=== PATIENT | male | born 1945 | race Caucasian/White ===

== ENCOUNTER → 2016-07-26 | Outpatient (CLI) | payer OTHER ==
[~2016-07-26] MED LIST: ASPI81TA28 PO; CARV25TA2 PO; CRDCD180 PO; ELQ25 PO; FURO-85 PO; LNX125 PO; LOSA100T65 PO; MCRK20 PO; PRAV40TA2 PO
[2016-07-26 11:31] LABS: BLOOD UREA NITROGEN 22 mg/dl (7-18); BUN/CREATININE RATIO 16.8 (10-20); CALCIUM 9.7 mg/dl (8.5-10.1); CARBON DIOXIDE 28 mmol/L (21-32); CHLORIDE 107 mmol/L (98-107); GLUCOSE 132 mg/dl (70-99); POTASSIUM 4.4 mmol/L (3.5-5.1); SODIUM 141 mmol/L (136-145)
[2016-07-26 11:32] LABS: PHOSPHORUS 3.2 mg/dl (2.5-4.9)
[2016-07-26 12:16] LABS: URINE APPEARANCE TURBID (CLEAR); URINE BILIRUBIN NEG (NEG); URINE COLOR DK YELLOW; URINE NITRITE NEG (NEG); URINE PH 5.5 (4.5-7.5); URINE SPECIFIC GRAVITY 1.024 (1.000-1.030); UROBILINOGEN NEG (NEG)
[2016-07-26 12:17] LABS: MANUAL MICROSCOPIC REQUIRED? NO; REVIEW REQ? NO
== END | disposition home or self-care (01) ==
LOC: C.LAB1850 09:28
PROVIDERS: ATTEND Internal Medicine Nephrology
DX: N18.2 Chronic kidney disease, stage 2 (mild) (principal)

== ENCOUNTER → 2017-01-13 | Outpatient (CLI) | payer OTHER ==
[~2017-01-13] MED LIST changes: -CRDCD180 PO; -ELQ25 PO; -LNX125 PO; -MCRK20 PO
[2017-01-13 12:29] LABS: BASO % 0.4 %; BASO ABS # 0.03 K/uL (0-0.2); COMPLETE YES; EOS % 2.9 %; HEMATOCRIT 45.6 % (42-52); IG% 0.2 %; LYMPH % 33.9 %; LYMPH ABS # 2.77 K/uL (1.2-3.4); MEAN CELL VOLUME 91.2 fL (80-100); MEAN CORPUSCULAR HGB CONC 35.1 g/dl (32-36); MEAN PLATELET VOLUME 10.6 fL (7.4-10.4); MONO % 8.6 %; PLATELET COUNT 235 K/uL (130-400); WHITE BLOOD COUNT 8.17 K/uL (4.8-10.8)
[2017-01-13 12:56] LABS: BLOOD UREA NITROGEN 21 mg/dl (7-18); BUN/CREATININE RATIO 19.1 (10-20); CALCIUM 9.1 mg/dl (8.5-10.1); CARBON DIOXIDE 26 mmol/L (21-32); CHLORIDE 108 mmol/L (98-107); GLUCOSE 95 mg/dl (70-99); POTASSIUM 4.2 mmol/L (3.5-5.1); SODIUM 139 mmol/L (136-145)
[2017-01-13 13:06] LABS: PHOSPHORUS 2.9 mg/dl (2.5-4.9)
[2017-01-13 13:35] LABS: ESTIMATED AVERAGE GLUCOSE 120 mg/dl; HA1C FLAG Normal (Normal)
== END | disposition home or self-care (01) ==
LOC: C.LAB1850 11:37
PROVIDERS: ATTEND Internal Medicine Nephrology
DX: R73.9 Hyperglycemia, unspecified (principal); D64.9 Anemia, unspecified; N18.3 Chronic kidney disease, stage 3 (moderate)

== ENCOUNTER 2017-02-27 06:42 | Inpatient (IN) | payer OTHER ==
[2017-02-27] VITALS (10 sets, daily range): BP systolic 116–144; BP diastolic 78–94; PULSE 82–113; TEMP 36.7–37.2; O2SAT 92–96; Ht 190.5 cm; Wt 107.1 kg
[~2017-02-27] VITALS: Ht 190.5 cm; Wt 107.1 kg
--- NOTE | 2017-02-27 07:08 | EMERGENCY ROOM VISIT NOTE ---
History Report prepared by nAdrey: Acosta Mccann Under the Supervision of: Dr. Pablo Boyd M.D. First contact with patient: 06:51 Chief Complaint: SHORTNESS OF BREATH Stated Complaint: COUGHING,SHORT OF BREATH,HX HEART ISSUES History of Present Illness The patient is a 71 year old male who presents to the Emergency Room with complaints of a worsening illness that started a few days ago. He says that he thought he was just having a cold, with a cough, but his congestion and cough have not been going away, and last night, he states that he could not sleep due to hardly being able to breathe. The patient notes that he is wheezing a lot, and his shortness of breath is mostly when laying down. He says that he feels better when sitting up. The patient states that he is not using inhalers. Per the patient's , the patient has heart disease, and had a quadruple bypass 5 years ago. The patient has a defibrillator, but it has never activated. He had atrial fibrillation once but has never had it since. He is on Aspirin. Source of History: patient, spouse/significant other Onset: A few days ago Position: other (global - illness) Quality: other (thought was just a cold but is worsening) Timing: worsening Modifying Factors (Worsening): other (laying down) Modifying Factors (Relieving): other (sitting up) Associated Symptoms: + cough, + SOB Note: Associated symptoms: Congestion, wheezing. Review of Systems See HPI for pertinent positives & negatives. A total of 10 systems reviewed and were otherwise negative. Past Medical & Surgical Medical Problems: (1) Atrial fibrillation with RVR (2) Heart disease (3) HTN (hypertension) (4) Kidney disease Surgical Problems: (1) H/O heart bypass surgery Family History FH: HTN (hypertension) FH: cancer FH: diabetes mellitus Lung disease Social History Smoking Status: Never Smoker Smokeless Tobacco Use: No Marital Status: Housing Status: lives with family Occupation Status: retired Current/Historical Medications Scheduled Aspirin (Aspirin Ec), 81 MG PO QAM Carvedilol (Coreg), 25 MG PO BID Furosemide (Lasix), 20 MG PO Q2D Losartan Potassium (Cozaar), 100 MG PO QAM Pravastatin Sodium (Pravastatin Sodium), 1 TAB PO HS Allergies Coded Allergies: No Known Allergies (Unverified , 08/27/15) Physical Exam Vital Signs Date Time Temp Pulse Resp B/P (MAP) Pulse Ox O2 Delivery O2 Flow Rate FiO2 02/27/17 08:40 94 Room Air 02/27/17 08:36 106 19 137/93 94 02/27/17 08:26 114 128/93 02/27/17 08:25 115 24 128/93 94 Room Air 02/27/17 07:57 113 16 96 Room Air 02/27/17 07:00 95 Room Air 02/27/17 06:56 121 02/27/17 06:51 94 Room Air 02/27/17 06:43 36.5 146 20 139/103 95 Room Air Physical Exam GENERAL: Patient is a healthy-appearing well-nourished 71 year old male. HEAD: Normocephalic atraumatic EYES: Ocular movements intact pupils equal and react to light OROPHARYNX mucous membranes are moist no exudates present no erythema or edema present NECK: Supple no nuchal rigidity CHEST: Good equal expansion LUNGS: Bilateral wheezes present. CARDIAC: Normal S1 and S2 ABDOMEN: Soft nontender no guarding BACK: No CVA tenderness EXTREMITIES: No pain upon palpation normal muscle strength in all groups no clubbing cyanosis or edema NEURO: Patient is following commands and answering questions appropriately. Alert and oriented x3 Cranial Nerves 2-12 grossly intact Medical Decision & Procedures ER Provider Diagnostic Interpretation: X-ray results as stated below per interpretation by me and the radiologist: CHEST ONE VIEW PORTABLE HISTORY: Pt c/o new onset afib COMPARISON: Chest 02/11/2015. FINDINGS: Left single lead pacemaker/defibrillator. The heart is borderline enlarged. There are poststernotomy changes. Trace bilateral pleural effusions. No pneumothorax. Perihilar interstitial and vascular thickening with hazy bibasilar densities. This favors mild pulmonary edema. IMPRESSION: Mild interstitial pulmonary edema and trace bilateral pleural effusions. Electronically signed by: Mat Weldon M.D. 02/27/2017 7:45 AM Dictated Date/Time: 02/27/2017 7:43 AM CHEST CTA for PULMONARY ARTERIES CT DOSE: 734.32 mGy.cm HISTORY: Atrial fibrillation. Short of breath. TECHNIQUE: Multiaxial CT images of the chest were performed following the intravenous administration of contrast to evaluate the pulmonary arteries. Maximal intensity projection images were also obtained. A dose lowering technique was utilized adhering to the principles of ALARA. COMPARISON STUDY: Chest 02/27/2017. FINDINGS: Suboptimal opacification of the aorta due to the timing of contrast. However, no evidence for a dissection. The thoracic aorta is normal in caliber. The visualized liver, spleen, and adrenal glands are unremarkable. Small bilateral pleural effusions. Left-sided pacemaker. The heart is mildly enlarged. Multiple mediastinal nodes. The majority of these measure subcentimeter in short axis diameter. No hilar lymphadenopathy. Poststernotomy changes. No pneumothorax. The central airways are patent. Mild interlobular septal thickening. Mild groundglass densities at the lung bases likely represent dependent change. Otherwise, no focal lung consolidations to suggest pneumonia. A 9 mm peripheral nodule within the right upper lobe on image 223. This contains a small amount of calcification. The bilateral lower lobe subsegmental pulmonary arteries are not well visualized due to respiratory motion artifact. However, the remaining pulmonary arteries show no filling defects to suggest pulmonary embolus. IMPRESSION: 1. No evidence for bone embolus. 2. Mild interlobular septal thickening, mild cardiomegaly, and small bilateral pleural effusions. This is consistent with mild pulmonary edema. 3. A 9 mm partially calcified right upper lobe pulmonary nodule. Please refer to the chart below for recommended follow-up. Please refer to below summary of Fleischner criteria recommendations for follow-up of incidental CT nodules (Gama Arboleda, Guidelines for management of small pulmonary nodules detected on CT scans: A statement from the Fleischner Society, Radiology 237: [phone].) SOLID NODULES Solitary nodule size: <6 mm * Low risk patients: no follow-up needed * high risk patients: optional CT at 12 months Solitary nodule size: 6-8 mm * Low risk patients: follow-up at 6-12 months, then consider further follow-up at 18-24 months * high risk patients: initial follow-up CT at 6-12 months and then at 18-24 months if no change Solitary nodule size: >8 mm * either low or high risk patients - consider follow-up CT at 3 months, and/or CT-PET, and/or biopsy Multiple nodules size: <6 mm * Low risk patients: no routine follow-up * high risk patients: optional CT at 12 months Multiple nodules size: 6-8 mm * Low risk patients: follow-up at 3-6 months, then consider further follow-up at 18-24 months * high risk patients: follow-up at 3-6 months, then at 18-24 months if no change Multiple nodules size: >8 mm * Low risk patients: follow-up at 3-6 months, then consider further follow-up at 18-24 months * high risk patients: follow-up at 3-6 months, then at 18-24 months if no change Note: newly detected indeterminate nodule in persons 35 years of age or older. * Low risk patients: minimal or absent history of smoking and/or other known risk factors * high risk patients: history of smoking or of other known risk factors (e.g. first degree relative with lung cancer, or exposure to asbestos, radon, uranium) * if a nodule up to 8 mm is partly solid or is ground glass further follow-up is required after 24 months to exclude possible slow growing adenocarcinoma (URI) SUBSOLID NODULES Solitary pure ground-glass nodule * nodule size <6 mm - no CT follow-up required * nodule size >=6 mm - follow-up CT at 6-12 months, then every 2 years until 5 years Solitary part-solid nodule * nodule size <6 mm - no CT follow-up required * nodule size >=6 mm - follow-up CT at 3-6 months. If unchanged, and solid component remains <6 mm, then annual follow-up for 5 years Multiple subsolid nodules * nodule size <6 mm - follow-up CT at 3-6 months, consider further follow-up at 2 and 4 years if stable * nodule size >=6 mm - follow-up CT at 3-6 months, subsequent management based on the most suspicious nodule(s) Electronically signed by: Mat Weldon M.D. 02/27/2017 8:27 AM Dictated Date/Time: 02/27/2017 8:19 AM Laboratory Results 02/27/17 07:25 Red Blood Count 4.50, Mean Corpuscular Volume 92.4, Mean Corpuscular Hemoglobin 31.8, Mean Corpuscular Hemoglobin Concent 34.4, Mean Platelet Volume 10.8, Neutrophils (%) (Auto) 74.9, Lymphocytes (%) (Auto) 16.0, Monocytes (%) (Auto) 6.2, Eosinophils (%) (Auto) 2.5, Basophils (%) (Auto) 0.2, Neutrophils # (Auto) 6.24, Lymphocytes # (Auto) 1.34, Monocytes # (Auto) 0.52, Eosinophils # (Auto) 0.21, Basophils # (Auto) 0.02 02/27/17 07:25 Test 02/27/17 07:25 02/27/17 07:32 02/27/17 07:34 02/27/17 07:40 White Blood Count 8.35 K/uL (4.8-10.8) Red Blood Count 4.50 M/uL (4.7-6.1) Hemoglobin 14.3 g/dL (14.0-18.0) Hematocrit 41.6 % (42-52) Mean Corpuscular Volume 92.4 fL (80-100) Mean Corpuscular Hemoglobin 31.8 pg (25-34) Mean Corpuscular Hemoglobin Concent 34.4 g/dl (32-36) Platelet Count 187 K/uL (130-400) Mean Platelet Volume 10.8 fL (7.4-10.4) Neutrophils (%) (Auto) 74.9 % Lymphocytes (%) (Auto) 16.0 % Monocytes (%) (Auto) 6.2 % Eosinophils (%) (Auto) 2.5 % Basophils (%) (Auto) 0.2 % Neutrophils # (Auto) 6.24 K/uL (1.4-6.5) Lymphocytes # (Auto) 1.34 K/uL (1.2-3.4) Monocytes # (Auto) 0.52 K/uL (0.11-0.59) Eosinophils # (Auto) 0.21 K/uL (0-0.5) Basophils # (Auto) 0.02 K/uL (0-0.2) RDW Standard Deviation 51.0 fL (36.4-46.3) RDW Coefficient of Variation 15.1 % (11.5-14.5) Immature Granulocyte % (Auto) 0.2 % Immature Granulocyte # (Auto) 0.02 K/uL (0.00-0.02) Prothrombin Time 11.4 SECONDS (9.0-12.0) Prothromb Time International Ratio 1.1 (0.9-1.1) Est Creatinine Clear Calc Drug Dose 78.7 ml/min Estimated GFR () 72.8 Estimated GFR (Non- 62.8 BUN/Creatinine Ratio 9.4 (10-20) Calcium Level 8.8 mg/dl (8.5-10.1) Total Bilirubin 0.8 mg/dl (0.2-1) Aspartate Amino Transf (AST/SGOT) 17 U/L (15-37) Alanine Aminotransferase (ALT/SGPT) 32 U/L (12-78) Alkaline Phosphatase 79 U/L (45-117) Total Creatine Kinase 60 U/L (39-308) Creatine Kinase MB 0.6 ng/ml (0.5-3.6) Creatine Kinase MB Ratio 1.0 (0-3.0) Troponin I < 0.015 ng/ml (0-0.045) Pro-B-Type Natriuretic Peptide 2098 pg/ml (0-900) Total Protein 7.5 gm/dl (6.4-8.2) Albumin 3.7 gm/dl (3.4-5.0) Globulin 3.8 gm/dl (2.5-4.0) Albumin/Globulin Ratio 1.0 (0.9-2) Bedside D-Dimer > 450 ng/mlFEU (0-450) Bedside Hemoglobin 15.0 g/dl (14.0-18.0) Bedside Hematocrit 44 % (42-52) Bedside Sodium 143 mEq/L (135-144) Bedside Potassium 4.0 mEq/L (3.3-5.0) Bedside Chloride 105 mEq/L (101-112) Bedside Total CO2 23 mEq/l (24-31) Anion Gap 19.0 mmol/L (16-25) Bedside Blood Urea Nitrogen 11 mg/dl (7-18) Bedside Creatinine 1.0 mg/dl (0.6-1.3) Bedside Glucose (other) 145 mg/dl (70-99) Bedside Ionized Calcium (Tracy) 1.20 mmol/l (1.12-1.32) Urine Color ORANGE Urine Appearance CLEAR (CLEAR) Urine pH 5.0 (4.5-7.5) Urine Specific [place] 1.014 (1.000-1.030) Urine Protein NEG (NEG) Urine Glucose (UA) NEG (NEG) Urine Ketones NEG (NEG) Urine Occult Blood NEG (NEG) Urine Nitrite NEG (NEG) Urine Bilirubin NEG (NEG) Urine Urobilinogen NEG (NEG) Urine Leukocyte Esterase NEG (NEG) Labs reviewed by ED physician. Medications Administered Medications (Trade) Dose Ordered Sig/Chucho Route Start Time Stop Time Status Last Admin Dose Admin Levalbuterol (Xopenex 1.25MG/ 3ML Neb) 1.25 mg NOW STAT INH 02/27/17 07:38 02/27/17 07:39 DC 02/27/17 07:57 1.25 MG Furosemide (Lasix Inj) 40 mg NOW STAT IV 02/27/17 07:50 02/27/17 07:51 DC 02/27/17 08:32 40 MG Metoprolol Tartrate (Lopressor Iv) 15 mg NOW STAT IV 02/27/17 07:57 02/27/17 07:59 DC 02/27/17 08:26 5 MG ECG Indication: SOB/dyspnea Rate (beats per minute): 139 Rhythm: atrial fibrillation (with RVR) Findings: no acute ischemic change, other (old inferolateral infarct) Comparison ECG Date: no prior available ED Course 0700: Past medical records reviewed. The patient was evaluated in room B2. A complete history and physical examination was performed. 0738: Ordered Xopenex 1.25MG/3ML Neb 1.25 mg INH. 0746: Upon reexamination the patient is resting. I discussed results and treatment plan with the patient. He verbalizes agreement and understanding. The patient will be evaluated for further management. 0750: Ordered Lasix Inj 40 mg IV. 0757: Ordered Lopressor IV 15 mg. 0827: I discussed the patient's case with Dr. Perez - [facility] railroad car letterer, he has agreed to evaluate the patient for further management and care. 0834: I reevaluated and updated the patient. Medical Decision Differential diagnosis: Etiologies such as infections, reactive airway disease, pneumonia, pneumothorax , COPD, CHF, cardiac ischemia, pulmonary embolism, musculoskeletal, gastrointestinal, as well as others were entertained. This is a 71-year-old male who presents emergency department complaining of difficulty breathing. The patient reports he has been having issues for the past month. In addition he feels short of breath. He was given Xopenex breathing treatments in the emergency department. His chest x-ray was concerning for pleural effusions as well as pulmonary edema. For this reason the patient was given Lasix in the emergency department. He was also given Lopressor for his heart rate. The patient has been in atrial fibrillation once before. I'm unsure how long he has been in it this time. The patient also takes a baby aspirin a day. I did discuss the case with the hospitalist service who agreed to admit the patient. Patient and family were in agreement with the treatment plan. Medication Reconcilliation Current Medication List: was personally reviewed by me Blood Pressure Screening Patient's blood pressure: Elevated blood pressure Blood pressure disposition: Elevated BP felt to be situational Consults Time Called: [phone] Consulting Physician: Dr. Ana SCHWARTZ railroad car letterer Returned Call: [phone] I discussed the patient's case with Dr. Ana SCHWARTZ railroad car letterer, he has agreed to evaluate the patient for further management and care. Impression Primary Impression: New onset a-fib Scribe Attestation The scribe's documentation has been prepared under my direction and personally reviewed by me in its entirety. I confirm that the note above accurately reflects all work, treatment, procedures, and medical decision making performed by me. Departure Information Dispostion Being Evaluated By Hospitalist Referrals RV. Rondon MD (PCP) Patient Instructions My [facility]
[2017-02-27] MEDS ORDERED: LEVALBUTEROL 1.25MG/3ML NEB INH STA (07:38)
--- NOTE | 2017-02-27 07:46 | DIAGNOSTIC IMAGING REPORT ---
CHEST ONE VIEW PORTABLE HISTORY: Pt c/o new onset afib COMPARISON: Chest 02/11/2015. FINDINGS: Left single lead pacemaker/defibrillator. The heart is borderline enlarged. There are poststernotomy changes. Trace bilateral pleural effusions. No pneumothorax. Perihilar interstitial and vascular thickening with hazy bibasilar densities. This favors mild pulmonary edema. IMPRESSION: Mild interstitial pulmonary edema and trace bilateral pleural effusions. Electronically signed by: Mat Weldon M.D. 02/27/2017 7:45 AM Dictated Date/Time: 02/27/2017 7:43 AM
[2017-02-27 07:48] LABS: ISTAT IONIZED CALCIUM 1.2 mmol/l (1.12-1.32)
[2017-02-27] MEDS ORDERED: FUROSEMIDE 40 MG/4 ML VIAL IV STA (07:50)
[2017-02-27 07:52] LABS: BASO % 0.2 %; BASO ABS # 0.02 K/uL (0-0.2); COMPLETE YES; EOS % 2.5 %; HEMATOCRIT 41.6 % (42-52); IG% 0.2 %; LYMPH ABS # 1.34 K/uL (1.2-3.4); MEAN CELL VOLUME 92.4 fL (80-100); MEAN CORPUSCULAR HEMOGLOBIN 31.8 pg (25-34); MEAN CORPUSCULAR HGB CONC 34.4 g/dl (32-36); MEAN PLATELET VOLUME 10.8 fL (7.4-10.4); MONO % 6.2 %; NEUT % 74.9 %; PLATELET COUNT 187 K/uL (130-400); WHITE BLOOD COUNT 8.35 K/uL (4.8-10.8)
[2017-02-27] MEDS ORDERED: METOPROLOL TARTRATE 1 MG/ML VIAL IV STA (07:57)
[2017-02-27 07:59] LABS: ALT/SGPT 32 U/L (12-78); BLOOD UREA NITROGEN 11 mg/dl (7-18); BUN/CREATININE RATIO 9.4 (10-20); CALCIUM 8.8 mg/dl (8.5-10.1); CARBON DIOXIDE 24 mmol/L (21-32); CHLORIDE 105 mmol/L (98-107); CREATININE 1.17 mg/dl (0.60-1.40); GLUCOSE 146 mg/dl (70-99); POTASSIUM 3.9 mmol/L (3.5-5.1); SODIUM 140 mmol/L (136-145)
[2017-02-27] MEDS ORDERED: OPTIRAY 320 IV PRN (08:00)
[2017-02-27 08:03] LABS: INR 1.1 (0.9-1.1); PROTHROMBIN TIME (PATIENT) 11.4 SECONDS (9.0-12.0)
[2017-02-27 08:05] LABS: ALKALINE PHOSPHATASE 79 U/L (45-117); AST/SGOT 17 U/L (15-37)
[2017-02-27 08:24] LABS: URINE APPEARANCE CLEAR (CLEAR); URINE BILIRUBIN NEG (NEG); URINE COLOR ORANGE; URINE NITRITE NEG (NEG); URINE SPECIFIC GRAVITY 1.014 (1.000-1.030); UROBILINOGEN NEG (NEG)
--- NOTE | 2017-02-27 08:29 | DIAGNOSTIC IMAGING REPORT ---
CHEST CTA for PULMONARY ARTERIES CT DOSE: 734.32 mGy.cm HISTORY: Atrial fibrillation. Short of breath. TECHNIQUE: Multiaxial CT images of the chest were performed following the intravenous administration of contrast to evaluate the pulmonary arteries. Maximal intensity projection images were also obtained. A dose lowering technique was utilized adhering to the principles of ALARA. COMPARISON STUDY: Chest 02/27/2017. FINDINGS: Suboptimal opacification of the aorta due to the timing of contrast. However, no evidence for a dissection. The thoracic aorta is normal in caliber. The visualized liver, spleen, and adrenal glands are unremarkable. Small bilateral pleural effusions. Left-sided pacemaker. The heart is mildly enlarged. Multiple mediastinal nodes. The majority of these measure subcentimeter in short axis diameter. No hilar lymphadenopathy. Poststernotomy changes. No pneumothorax. The central airways are patent. Mild interlobular septal thickening. Mild groundglass densities at the lung bases likely represent dependent change. Otherwise, no focal lung consolidations to suggest pneumonia. A 9 mm peripheral nodule within the right upper lobe on image 223. This contains a small amount of calcification. The bilateral lower lobe subsegmental pulmonary arteries are not well visualized due to respiratory motion artifact. However, the remaining pulmonary arteries show no filling defects to suggest pulmonary embolus. IMPRESSION: 1. No evidence for bone embolus. 2. Mild interlobular septal thickening, mild cardiomegaly, and small bilateral pleural effusions. This is consistent with mild pulmonary edema. 3. A 9 mm partially calcified right upper lobe pulmonary nodule. Please refer to the chart below for recommended follow-up. Please refer to below summary of Fleischner criteria recommendations for follow-up of incidental CT nodules (Gama Arboleda, Guidelines for management of small pulmonary nodules detected on CT scans: A statement from the Fleischner Society, Radiology 237: [phone].) SOLID NODULES Solitary nodule size: <6 mm * Low risk patients: no follow-up needed * high risk patients: optional CT at 12 months Solitary nodule size: 6-8 mm * Low risk patients: follow-up at 6-12 months, then consider further follow-up at 18-24 months * high risk patients: initial follow-up CT at 6-12 months and then at 18-24 months if no change Solitary nodule size: >8 mm * either low or high risk patients - consider follow-up CT at 3 months, and/or CT-PET, and/or biopsy Multiple nodules size: <6 mm * Low risk patients: no routine follow-up * high risk patients: optional CT at 12 months Multiple nodules size: 6-8 mm * Low risk patients: follow-up at 3-6 months, then consider further follow-up at 18-24 months * high risk patients: follow-up at 3-6 months, then at 18-24 months if no change Multiple nodules size: >8 mm * Low risk patients: follow-up at 3-6 months, then consider further follow-up at 18-24 months * high risk patients: follow-up at 3-6 months, then at 18-24 months if no change Note: newly detected indeterminate nodule in persons 35 years of age or older. * Low risk patients: minimal or absent history of smoking and/or other known risk factors * high risk patients: history of smoking or of other known risk factors (e.g. first degree relative with lung cancer, or exposure to asbestos, radon, uranium) * if a nodule up to 8 mm is partly solid or is ground glass further follow-up is required after 24 months to exclude possible slow growing adenocarcinoma (URI) SUBSOLID NODULES Solitary pure ground-glass nodule * nodule size <6 mm - no CT follow-up required * nodule size >=6 mm - follow-up CT at 6-12 months, then every 2 years until 5 years Solitary part-solid nodule * nodule size <6 mm - no CT follow-up required * nodule size >=6 mm - follow-up CT at 3-6 months. If unchanged, and solid component remains <6 mm, then annual follow-up for 5 years Multiple subsolid nodules * nodule size <6 mm - follow-up CT at 3-6 months, consider further follow-up at 2 and 4 years if stable * nodule size >=6 mm - follow-up CT at 3-6 months, subsequent management based on the most suspicious nodule(s) Electronically signed by: Mat Weldon M.D. 02/27/2017 8:27 AM Dictated Date/Time: 02/27/2017 8:19 AM
--- NOTE | 2017-02-27 09:06 | History and Physical ---
History & Physical Date & Time of Service: Feb 27, 2017 at 08:56 Chief Complaint: Coughing,Short Of Breath,Hx Heart Issues Primary Care Physician: RV. Rondon MD History of Present Illness Mr. Muñiz presents today with sob since yesterday with a non productive cough. He was in bed all day yesterday due to sob but by night could not breathe laying down. He had been feeling that he was getting a cold for the few days before that. He has had no change in his diet recently and follows a vegan diet. No chest pain or palpitations. No nausea or vomiting. He briefly had A.fib after his CABG 5 years ago while still in the hospital but has not experienced it since. The defibrillator was placed after the incident but has never picked up any other incidents of A.fib. He follows with Dr. Alexandre and Dr. Cedillo for cardiology. Hx CKD III, CABG x 4, and CAD. He is normally pretty active and walks a lot. Past Medical/Surgical History Chronic systolic CHF-last EF 50% 2013, previously 30-35% AICD/Single chamber pacer placement CAD s/p 4vCABG HTN CKD Stage III Lone atrial fibrillation immediately post-op from CABG-no recurrence until now Family History FH: HTN (hypertension) FH: cancer FH: diabetes mellitus Lung disease Social History Smoking Status: Current Every Day Smoker (smoked for about ten years cigarettes , but still occasionally smokes cigars or cigarettes) Smokeless Tobacco Use: No Alcohol Use: socially (very occasionally) Drug Use: none Marital Status: Housing status: lives with significant other 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 ) Allergies Coded Allergies: No Known Allergies (Unverified , 08/27/15) Home Medications Scheduled Aspirin (Aspirin Ec), 81 MG PO QAM Carvedilol (Coreg), 25 MG PO BID Furosemide (Lasix), 20 MG PO Q2D Losartan Potassium (Cozaar), 100 MG PO QAM Pravastatin Sodium (Pravastatin Sodium), 1 TAB PO HS Review of Systems Constitutional: No fever, No chills Respiratory: + cough, + wheezing, + shortness of breath, + dyspnea at rest, No sputum Cardiovascular: + orthopnea, No chest pain, No edema, No palpitations Abdomen: No pain, No nausea, No vomiting Physical Exam Vital Signs Date Time Temp Pulse Resp B/P (MAP) Pulse Ox O2 Delivery O2 Flow Rate FiO2 02/27/17 08:36 106 19 137/93 94 02/27/17 08:26 114 128/93 02/27/17 08:25 115 24 128/93 94 Room Air 02/27/17 07:57 113 16 96 Room Air 02/27/17 07:00 95 Room Air 02/27/17 06:56 121 02/27/17 06:51 94 Room Air 02/27/17 06:43 36.5 146 20 139/103 95 Room Air General: no distress Eyes: normal inspection, PERLL Respiratory: chest non tender, expiratory wheezes bilaterally throughout, no respiratory distress, no accessory muscle use Cardiac: irregular rate and rhythm, no rub or gallop, no murmur, no edema, GI/: active bowel sounds, no abd pain or tenderness, soft, non distended Extremities: normal range of motion, normal strength, non tender Neuro/Psych: alert and oriented x 3, normal mood and affect Skin: normal color, dry Diagnostics Laboratory Results Results Past 24 Hours Test 02/27/17 07:25 02/27/17 07:32 02/27/17 07:34 02/27/17 07:40 Range/Units White Blood Count 8.35 4.8-10.8 K/uL Red Blood Count 4.50 4.7-6.1 M/uL Hemoglobin 14.3 14.0-18.0 g/dL Hematocrit 41.6 42-52 % Mean Corpuscular Volume 92.4 80-100 fL Mean Corpuscular Hemoglobin 31.8 25-34 pg Mean Corpuscular Hemoglobin Concent 34.4 32-36 g/dl Platelet Count 187 130-400 K/uL Mean Platelet Volume 10.8 7.4-10.4 fL Neutrophils (%) (Auto) 74.9 % Lymphocytes (%) (Auto) 16.0 % Monocytes (%) (Auto) 6.2 % Eosinophils (%) (Auto) 2.5 % Basophils (%) (Auto) 0.2 % Neutrophils # (Auto) 6.24 1.4-6.5 K/uL Lymphocytes # (Auto) 1.34 1.2-3.4 K/uL Monocytes # (Auto) 0.52 0.11-0.59 K/uL Eosinophils # (Auto) 0.21 0-0.5 K/uL Basophils # (Auto) 0.02 0-0.2 K/uL RDW Standard Deviation 51.0 36.4-46.3 fL RDW Coefficient of Variation 15.1 11.5-14.5 % Immature Granulocyte % (Auto) 0.2 % Immature Granulocyte # (Auto) 0.02 0.00-0.02 K/uL Prothrombin Time 11.4 9.0-12.0 SECONDS Prothromb Time International Ratio 1.1 0.9-1.1 Sodium Level 140 136-145 mmol/L Potassium Level 3.9 3.5-5.1 mmol/L Chloride Level 105 98-107 mmol/L Carbon Dioxide Level 24 21-32 mmol/L Anion Gap 10.0 19.0 16-25 mmol/L Blood Urea Nitrogen 11 7-18 mg/dl Creatinine 1.17 0.60-1.40 mg/dl Est Creatinine Clear Calc Drug Dose 78.7 ml/min Estimated GFR () 72.8 Estimated GFR (Non- 62.8 BUN/Creatinine Ratio 9.4 10-20 Random Glucose 146 70-99 mg/dl Calcium Level 8.8 8.5-10.1 mg/dl Total Bilirubin 0.8 0.2-1 mg/dl Aspartate Amino Transf (AST/SGOT) 17 15-37 U/L Alanine Aminotransferase (ALT/SGPT) 32 12-78 U/L Alkaline Phosphatase 79 45-117 U/L Total Creatine Kinase 60 39-308 U/L Creatine Kinase MB 0.6 0.5-3.6 ng/ml Creatine Kinase MB Ratio 1.0 0-3.0 Troponin I < 0.015 0-0.045 ng/ml Pro-B-Type Natriuretic Peptide 2098 0-900 pg/ml Total Protein 7.5 6.4-8.2 gm/dl Albumin 3.7 3.4-5.0 gm/dl Globulin 3.8 2.5-4.0 gm/dl Albumin/Globulin Ratio 1.0 0.9-2 Bedside D-Dimer > 450 0-450 ng/mlFEU Bedside Hemoglobin 15.0 14.0-18.0 g/dl Bedside Hematocrit 44 42-52 % Bedside Sodium 143 135-144 mEq/L Bedside Potassium 4.0 3.3-5.0 mEq/L Bedside Chloride 105 101-112 mEq/L Bedside Total CO2 23 24-31 mEq/l Bedside Blood Urea Nitrogen 11 7-18 mg/dl Bedside Creatinine 1.0 0.6-1.3 mg/dl Bedside Glucose (other) 145 70-99 mg/dl Bedside Ionized Calcium (Tracy) 1.20 1.12-1.32 mmol/l Diagnostic Radiology CHEST CTA for PULMONARY ARTERIES CT DOSE: 734.32 mGy.cm HISTORY: Atrial fibrillation. Short of breath. TECHNIQUE: Multiaxial CT images of the chest were performed following the intravenous administration of contrast to evaluate the pulmonary arteries. Maximal intensity projection images were also obtained. A dose lowering technique was utilized adhering to the principles of ALARA. COMPARISON STUDY: Chest 02/27/2017. FINDINGS: Suboptimal opacification of the aorta due to the timing of contrast. However, no evidence for a dissection. The thoracic aorta is normal in caliber. The visualized liver, spleen, and adrenal glands are unremarkable. Small bilateral pleural effusions. Left-sided pacemaker. The heart is mildly enlarged. Multiple mediastinal nodes. The majority of these measure subcentimeter in short axis diameter. No hilar lymphadenopathy. Poststernotomy changes. No pneumothorax. The central airways are patent. Mild interlobular septal thickening. Mild groundglass densities at the lung bases likely represent dependent change. Otherwise, no focal lung consolidations to suggest pneumonia. A 9 mm peripheral nodule within the right upper lobe on image 223. This contains a small amount of calcification. The bilateral lower lobe subsegmental pulmonary arteries are not well visualized due to respiratory motion artifact. However, the remaining pulmonary arteries show no filling defects to suggest pulmonary embolus. IMPRESSION: 1. No evidence for bone embolus. 2. Mild interlobular septal thickening, mild cardiomegaly, and small bilateral pleural effusions. This is consistent with mild pulmonary edema. 3. A 9 mm partially calcified right upper lobe pulmonary nodule. Please refer to the chart below for recommended follow-up. Please refer to below summary of Fleischner criteria recommendations for follow-up of incidental CT nodules (Gama Arboleda, Guidelines for management of small pulmonary nodules detected on CT scans: A statement from the Fleischner Society, Radiology 237: [id number].) SOLID NODULES Solitary nodule size: <6 mm * Low risk patients: no follow-up needed * high risk patients: optional CT at 12 months Solitary nodule size: 6-8 mm * Low risk patients: follow-up at 6-12 months, then consider further follow-up at 18-24 months * high risk patients: initial follow-up CT at 6-12 months and then at 18-24 months if no change Solitary nodule size: >8 mm * either low or high risk patients - consider follow-up CT at 3 months, and/or CT-PET, and/or biopsy Multiple nodules size: <6 mm * Low risk patients: no routine follow-up * high risk patients: optional CT at 12 months Multiple nodules size: 6-8 mm * Low risk patients: follow-up at 3-6 months, then consider further follow-up at 18-24 months * high risk patients: follow-up at 3-6 months, then at 18-24 months if no change Multiple nodules size: >8 mm * Low risk patients: follow-up at 3-6 months, then consider further follow-up at 18-24 months * high risk patients: follow-up at 3-6 months, then at 18-24 months if no change Note: newly detected indeterminate nodule in persons 35 years of age or older. CHEST ONE VIEW PORTABLE HISTORY: Pt c/o new onset afib COMPARISON: Chest 02/11/2015. FINDINGS: Left single lead pacemaker/defibrillator. The heart is borderline enlarged. There are poststernotomy changes. Trace bilateral pleural effusions. No pneumothorax. Perihilar interstitial and vascular thickening with hazy bibasilar densities. This favors mild pulmonary edema. IMPRESSION: Mild interstitial pulmonary edema and trace bilateral pleural effusions. EKG Atrial Fibrillation with RVR Anteroseptal infarct , age undetermined Abnormal ECG No previous ECGs available Impression Assessment and Plan Mr. Muñiz is a 71 y/o man presenting for increased sob over the past two days. Pmhx CABG x4 2011 with ICD, CKD III with baseline creat 1.2 - 1.3, FILIPPO, HTN, A.fib RVR with subsequent systolic heart failure, htn - admit telemetry - enoxaparin for anticoagulation 1mg/kg q12h - continue home anti hypertensives/rate control, prn iv metoprolol fo hr >120 - consult cardiology - Echo - last echo was 2013 showing mildly dilated left ventricle with mildly reduced systolic function - EF 50% and distal LAD wall motion abnormality - Lasix 40 mg iv bid - Strict Is&Os, daily weights - Levalbuterol nebs q6h - possible COPD exacerbation component given smoking history, may need to add steroids if respiratory status does not improve with diuresis - continue statin/ASA Pulmonary Nodule - seen on CT - 9 mm peripheral nodule within the right upper lobe on image - Per Stacey criteria follow up CT in 3 months - patient is somewhat cagey about smoking history but per family he is still smoking though it does not sound like daily usage DVT prophylaxis - enoxaparin Full code Advanced Directives Existing Advance Directive: No Existing Living Will: No Existing Power of Ibm Bpm Developer: No Resuscitation Status FULL RESUSCITATION VTE Prophylaxis VTE Risk Assessment Done? Y/N: Yes Risk Level: Moderate Reviewed: Pt Seen/Exam by Me History READING TEACHER Supervision Note: I interviewed and examined the patient. Discussed with GISELE Harrison and agree with findings and plan as documented in the note. Any exceptions or clarifications are listed here: Pt is a 71 yo male who p/w cough and worsening SOB over the last 2-3 weeks, thought he had cold symptoms. Then had significant orthopnea last night and came in for evaluation. Was found to be in A-fib with RVR, acute on chronic systolic CHF. He has not been seen in Cardiology clinic or had pacer interrogated since Apr 2015. PMH/PSH/MEDS/ALL/SH/FH/ROS reviewed and agree with READING TEACHER H&P Tele-a-fib with rates in 120s Vitals reviewed NAD, sitting up in bed, pleasant, alert and oriented x 3 irreg irreg no mgr. tachy lungs with decreased BS at bases, faint exp wheezes at middle lung bear bilat Abd +BS soft NT ND Ext no edema, no calf tenderness, 2+ DP pulses CT CHest and CXR images reviewed by me ECG with rapid a-fib Pt is a 71 yo male with a h/o CAD, ischemic CM, chronic systolic CHF s/p single chamber pacer/AICD for primary prevention, CKD stage III, HTN, smoking, here with acute on chronic systolic CHF and rapid atrial fibrillation. CHF brought on by rapid A-fib. Pacer interrogated and it seems his rates have been high more consistently for at least the last 1-2 months. Plan for rate control with diltiazem gtt, continue po COreg home dose Discussed need for anticoagulation for stroke prevention--> will start Eliquis 5mg bid this evening as he received 1 dose Lovenox today May have some sort of lead issue as per Pacer interrogation--> appreciate EP input -Has already diuresed quite a bit with just one dose of IV lasix-will hold off on more IV lasix given h/o CKD stage III to avoid FILIPPO -will dose lasix in AM if stamp clerk ok Documented By: Savannah Trejo
[2017-02-27 09:15] LABS: MANUAL MICROSCOPIC REQUIRED? NO; REVIEW REQ? NO
[2017-02-27] MEDS ORDERED: ONDANSETRON INJ 2 MG/ML 2 ML VIAL IV PRN (09:15)
[2017-02-27] MEDS ORDERED: POLYETHYLENE (MIRALAX) 17 GM PACK PO PRN (09:15)
[2017-02-27] MEDS ORDERED: ACETAMINOPHEN 325 MG TAB PO PRN (09:15)
[2017-02-27] MEDS ORDERED: METOPROLOL TARTRATE 1 MG/ML VIAL IV PRN (09:30)
[2017-02-27] MEDS ORDERED: ENOXAPARIN 120 MG/0.8 ML SYR SQ SCH (12:00)
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
[2017-02-27] MEDS ORDERED: DILTIAZEM BOLUS / DRIP IV STA (12:19)
[2017-02-27] MEDS ORDERED: DILTIAZEM HCL 5 MG/ML 5 ML VIAL BOLUS/OMNI IV SCH (12:45)
[2017-02-27] MEDS: DILTIAZEM HCL INJ 125 MG in DEXTROSE 5% 100ML IV PRN ×2 (12:47→20:15)
[2017-02-27] MEDS: LEVALBUTEROL 1.25MG/3ML NEB INH SCH ×2 (15:18→19:13)
[2017-02-27] MEDS: PRAVASTATIN SOD 40 MG TAB PO SCH (19:54)
[2017-02-27] MEDS: APIXABAN 2.5 MG TAB PO SCH (19:55)
[2017-02-27] MEDS: CARVEDILOL 25 MG TAB PO SCH (19:55)
[2017-02-27] MEDS ORDERED: FUROSEMIDE INJ 40 MG in SYRINGE 0 ML IV SCH (21:00)
[2017-02-28] VITALS (13 sets, daily range): BP systolic 109–127; BP diastolic 71–85; PULSE 68–105; TEMP 36.5–37; O2SAT 92–97
[2017-02-28] MEDS: LEVALBUTEROL 1.25MG/3ML NEB INH SCH ×4 (02:07→20:52)
[2017-02-28 07:16] LABS: MEAN CELL VOLUME 91.3 fL (80-100); MEAN CORPUSCULAR HEMOGLOBIN 31.6 pg (25-34); MEAN CORPUSCULAR HGB CONC 34.6 g/dl (32-36); MEAN PLATELET VOLUME 10.6 fL (7.4-10.4); PLATELET COUNT 161 K/uL (130-400); RED BLOOD COUNT 4.27 M/uL (4.7-6.1); WHITE BLOOD COUNT 6.29 K/uL (4.8-10.8)
[2017-02-28] MEDS: ASPIRIN 81 MG ECTAB PO SCH (07:31)
[2017-02-28] MEDS: LOSARTAN POTASSIUM 50 MG TAB PO SCH (07:32)
[2017-02-28] MEDS: CARVEDILOL 25 MG TAB PO SCH ×2 (07:33→20:12)
[2017-02-28] MEDS: APIXABAN 2.5 MG TAB PO SCH ×2 (07:33→20:12)
[2017-02-28 07:44] LABS: BUN/CREATININE RATIO 13.4 (10-20); CALCIUM 8.5 mg/dl (8.5-10.1); CREATININE 1.11 mg/dl (0.60-1.40); MAGNESIUM 2.2 mg/dl (1.8-2.4); POTASSIUM 3.5 mmol/L (3.5-5.1)
--- NOTE | 2017-02-28 09:17 | Cardiology Follow-Up ---
Subjective Date of Service: Feb 28, 2017. Pt evaluation today including: conversation w/ patient, conversation w/ family , physical exam, lab review, review of studies, review of inpatient medication list History of Present Illness This is a very pleasant 71-year-old gentleman who has a history of coronary artery disease including an anterior myocardial infarction in the past as well as coronary bypass surgery in December of 2011. This all took place in [place] where he lived at the time. He also had left ventricular dysfunction, following surgery he had a repeat echocardiogram showing continued left ventricular dysfunction with ejection fraction of 30-35% and therefore he had an ICD implanted for primary prevention of sudden cardiac . An echocardiogram done here in October 2013 however showed an ejection fraction of 50%. His ICD is a single-chamber unit and was implanted on May 11, 2012 in [place]. He subsequently relocated to the [facility]. His device has alerts in place which produce audible tones in the presence of electrical abnormalities regard the device and the leads, he heard those tones and on evaluation February 12, 2015 he had some short interval counts (these are non physiologic electrical events generally representing outside interference or intrinsic lead problems). 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 This has not recurred. He now presents with symptoms of one month of a cough which he feels was a cold followed by shortness of breath starting on 02/26/2017 and including orthopnea that evening and shortness of breath the next day. He is really not aware of his heart rhythm so we can't go by symptoms as to when his arrhythmia may have started. He did have atrial fibrillation following his surgery in 2011, but none to our knowledge since. He has a single-chamber device so he could've had episodes of atrial fibrillation we were unaware of, however the device does trend heart rates so we may well have seen it that way if he had it. He currently feels very well, he has no lightheadedness, dizziness or palpitations and shortness of breath has improved substantially. Resting in bed he has no shortness of breath, and no orthopnea. He has not been out of bed very much to determine dyspnea on exertion. His cough has resolved. Social History Smoking Status: Current Every Day Smoker (smoked for about ten years cigarettes , but still occasionally smokes cigars or cigarettes) History of Alcohol Use: Yes (OCCASSIONALLY) Review of Systems Respiratory: + see HPI, No cough, No wheezing, No shortness of breath, No dyspnea on exertion Cardiac: + see HPI, No chest pain, No orthopnea, No PND, No edema, No palpitations Medications Cardiovascular: Item Value Date Time Aspirin 81 mg 02/28/17 0900 (Ecotrin Tab) QAM/PO 02/28/17 0731 Losartan Potassium 100 mg 02/28/17 0900 (coZAAR TAB) QAM/PO 02/28/17 0732 Carvedilol 25 mg 02/27/17 2100 (Coreg Tab) BID/PO 02/28/17 07 Pravastatin Sodium 40 mg 02/27/172099 (Pravachol Tab) HS/PO 02/27/171953 Apixaban 5 mg 02/27/172099 (Eliquis Tab) BID/PO 02/28/1733 Diltiazem HCl 125 125 ml @ 0 mls/hr 02/27/17 1245 mg/Dextrose .Q0M PRN/IV 02/27/172014 Metoprolol 5 mg 02/27/17 0930 Tartrate Q4 PRN/IV (Lopressor Iv) Objective Vital Signs Past 12 Hours Date Time Temp Pulse Resp B/P (MAP) Pulse Ox O2 Delivery O2 Flow Rate FiO2 02/28/17 07:13 91 16 96 Room Air 02/28/17 04:00 97 Room Air 02/28/17 03:40 36.7 68 18 127/82 (97) 96 Room Air 02/28/17 02:08 98 16 92 Room Air 02/28/17 00:00 97 Room Air 02/27/17 23:30 37.2 82 18 116/78 (91) 92 Room Air Last Recorded Weight-Kilograms: 110.000 Physical Exam Constitutional: General Apperance: heathly-appearing Level of Distress: NAD Lungs: Respiratory effort: no dyspnea, good air movement Auscultation: breath sounds normal, no wheezing Cardiovascular: Heart Auscultation: no murmurs, no rubs, no gallops, tachycardia, irregular rate rhythm Peripheral Pulses: Bruits: none appreciated Extremities: no edema Data Laboratory Results: Last 24 Hours Test 02/27/17 13:13 02/27/17 19:40 02/28/17 07:07 Troponin I 0.016 ng/ml < 0.015 ng/ml White Blood Count 6.29 K/uL Red Blood Count 4.27 M/uL Hemoglobin 13.5 g/dL Hematocrit 39.0 % Mean Corpuscular Volume 91.3 fL Mean Corpuscular Hemoglobin 31.6 pg Mean Corpuscular Hemoglobin Concent 34.6 g/dl RDW Standard Deviation 49.9 fL RDW Coefficient of Variation 14.8 % Platelet Count 161 K/uL Mean Platelet Volume 10.6 fL Sodium Level 137 mmol/L Potassium Level 3.5 mmol/L Chloride Level 104 mmol/L Carbon Dioxide Level 24 mmol/L Anion Gap 9.0 mmol/L Blood Urea Nitrogen 15 mg/dl Creatinine 1.11 mg/dl Est Creatinine Clear Calc Drug Dose 82.9 ml/min Estimated GFR () 77.6 Estimated GFR (Non- 66.9 BUN/Creatinine Ratio 13.4 Random Glucose 107 mg/dl Calcium Level 8.5 mg/dl Magnesium Level 2.2 mg/dl Imaging: Done, results pending EKG: An electrocardiogram this morning shows atrial fibrillation with a heart rate of 92 bpm. Telemetry reviewed: Atrial fibrillation with a somewhat improved heart rate, but still in the 90-110 bpm range. ICD evaluation: Done yesterday, the printouts are currently not available. It is functioning properly based on its programmed mode. Assessment and Plan #1. Atrial fibrillation: Since he is not aware of palpitations and his symptoms on presentation are congestive heart failure it is not clear when his arrhythmia started. He seems to have started some time ago (perhaps even with the cough a month ago) and it may have taken some time for heart failure to develop. From his device interrogation may be up to get an idea when it started , with a single-chamber device we won't have atrial electrograms but we may see a sudden change in heart rate. His device was interrogated yesterday, however the printout appears to be unavailable at this time (it is not in the chart or scanned in as yet) but I will review when available. I am told that his heart rate was fast for the last month or so. For the moment he will need anticoagulation and heart rate control, I agree with eliquis for anticoagulation and diltiazem for rate control, however his heart rate is not well controlled. I'm going to add digoxin to his regimen and switch him to oral diltiazem today. I would like to keep his heart rate controlled and him on anticoagulation for about a month and then consider cardioversion if he remains in atrial fibrillation. #2. Coronary artery disease: He has known coronary disease but does not have symptoms to suggest active ischemia, even with his arrhythmia. I will review his echocardiogram when available to see whether he has left ventricular dysfunction or new wall motion abnormalities but that seems unlikely. At this point I would not pursue coronary evaluation. #3. Congestive heart failure: He seems to have congestive heart failure based on radiographic imaging, although his BNP and exam do not suggest much in the way of heart failure. I think he probably did retain some fluid related to the atrial arrhythmia, although I can't exclude the possibility that he has developing worsening left ventricular function resulting in CHF and atrial fibrillation. I will review his echocardiogram for left ventricular function. #4. ICD: His ICD is operating properly in the mode it is currently programmed to , which is sensing from the pacing tip to the RV coil (he seems to have a lead fracture in the RV ring electrode, known in the past). In this mode the device cannot pace, but he doesn't seem to need it. With data download we can see that his RV tip to RV coil impedance is stable so there is no further lead issue. This is probably acceptable as he does not seem to need pacing. Although this would also obviate backup pacing if he got a shock, most people don't need that and he has not needed a shock. Thank you for allowing me to participate in his care.
[2017-02-28] MEDS ORDERED: DIGOXIN 0.25 MG TAB PO ONE (09:30)
[2017-02-28] MEDS: DILTIAZEM HCL 180 MG CAPCR PO SCH (10:04)
--- NOTE | 2017-02-28 10:05 | ECHOCARDIOGRAM REPORT ---
*NOTICE TO RECEIVING DEMOCRAT AGENCY This information is strictly Confidential and protected under [place] law. [place] law prohibits you from making any further disclosure of this information unless further disclosure is expressly permitted by the written consent of the person to whom it pertains or is authorized by law. A general authorization for the release of medical or other information is not sufficient for this purpose. Hospital accepts no responsibility if the information is made available to any other person, INCLUDING THE PATIENT. Interpretation Summary * Name: LETTY LEONARDO Study Date: 02/27/2017 01:17 PM BP: 134/84 mmHg * Patient Location: C.2T\S\S239\S\2 HR: 93 * : 1945 (M/d/yyyy) Gender: Male Height: 75 in * Age: 71 yrs Ethnicity: CA Weight: 242 lb * Ordering Physician: Celia Harrison * Referring Physician: Self, Referred * Performed By: Nia Murrieta RCS * * Reason For Study: A-FIB * BSA: 2.4 m2 * -- Conclusions -- * The left ventricle is mildly dilated. * Left ventricular systolic function is moderately reduced. * Thrombus can not be excluded. * There are regional wall motion abnormalities as specified. * The left atrium is severely dilated. * The right atrium is moderately dilated. * Aortic valve sclerosis mild, without significant aortic valvular stenosis. * Mild to moderate aortic regurgitation. * There is mild mitral regurgitation. Procedure Details * A complete two-dimensional transthoracic echocardiogram was performed (2D, M-mode, Doppler and color flow Doppler). Left Ventricle * The left ventricle is mildly dilated. * Thrombus can not be excluded. * There is borderline concentric left ventricular hypertrophy. * Left ventricular systolic function is moderately reduced. * Ejection Fraction = 25-30%. * There are regional wall motion abnormalities as specified. * Basal segements are mildly hypokinetic with more severe apical hypokinesis. The infero-septal apex is dyskinetic. Right Ventricle * The right ventricle is grossly normal size. * There is a pacemaker lead in the right ventricle. * The right ventricular systolic function is normal. Atria * The left atrium is severely dilated. * The right atrium is moderately dilated. Mitral Valve * The mitral valve anatomy is normal. * There is mild mitral regurgitation. Tricuspid Valve * The tricuspid valve is not well visualized, but is grossly normal. * There is trace tricuspid regurgitation. Aortic Valve * Aortic valve sclerosis mild, without significant aortic valvular stenosis. * No hemodynamically significant valvular aortic stenosis. * Mild to moderate aortic regurgitation. Great Vessels * The aortic root is normal size. Pericardium/Pleural * There is no pericardial effusion. Great Vessels * Normal inferior vena cava diameter and respiratory variation suggests normal central venous pressure. MMode 2D Measurements and Calculations IVSd 1.3 cm IVSs 1.5 cm LVIDd 6.2 cm LVIDs 5.1 cm LVPWd 1.2 cm LVPWs 1.4 cm IVS/LVPW 1.1 FS 17.9 % EDV(Teich) 194.9 ml ESV(Teich) 123.7 ml EF(Teich) 36.5 % EDV(cubed) 239.8 ml ESV(cubed) 132.5 ml EF(cubed) 44.7 % % IVS thick 18.6 % % LVPW thick 16.4 % LV mass(C)d 341.2 grams LV mass(C)dI 143.4 grams/m\S\2 LV mass(C)s 312.1 grams LV mass(C)sI 131.1 grams/m\S\2 SV(Teich) 71.2 ml SI(Teich) 29.9 ml/m\S\2 SV(cubed) 107.3 ml SI(cubed) 45.1 ml/m\S\2 Ao root diam 3.4 cm Ao root area 8.9 cm\S\2 ACS 2.0 cm LA dimension 5.7 cm LA/Ao 1.7 LVOT diam 2.0 cm LVOT area 3.3 cm\S\2 LVAd ap4 44.8 cm\S\2 LVLd ap4 9.2 cm EDV(MOD-sp4) 176.1 ml EDV(sp4-el) 185.2 ml LVAs ap4 33.6 cm\S\2 LVLs ap4 9.0 cm ESV(MOD-sp4) 102.7 ml ESV(sp4-el) 105.7 ml EF(MOD-sp4) 41.7 % EF(sp4-el) 42.9 % LVAd ap2 39.2 cm\S\2 LVLd ap2 8.4 cm EDV(MOD-sp2) 149.5 ml EDV(sp2-el) 154.5 ml LVAs ap2 29.3 cm\S\2 LVLs ap2 7.6 cm ESV(MOD-sp2) 90.8 ml ESV(sp2-el) 95.8 ml EF(MOD-sp2) 39.2 % EF(sp2-el) 38.0 % LVLd %diff -8.88 % EDV(MOD-bp) 171.7 ml LVLs %diff -18.86 % ESV(MOD-bp) 105.5 ml EF(MOD-bp) 38.6 % SV(MOD-sp4) 73.4 ml SI(MOD-sp4) 30.8 ml/m\S\2 SV(MOD-sp2) 58.7 ml SI(MOD-sp2) 24.7 ml/m\S\2 SV(MOD-bp) 66.2 ml SI(MOD-bp) 27.8 ml/m\S\2 SV(sp4-el) 79.5 ml SI(sp4-el) 33.4 ml/m\S\2 SV(sp2-el) 58.7 ml SI(sp2-el) 24.7 ml/m\S\2 Doppler Measurements and Calculations MV E max mark 100.8 cm/sec MV P1/2t max mark 103.5 cm/sec MV P1/2t 123.1 msec MVA(P1/2t) 1.8 cm\S\2 MV dec slope 246.4 cm/sec\S\2 MV dec time 0.23 sec Ao V2 max 98.9 cm/sec Ao max PG 3.9 mmHg Ao max PG (full) 0.75 mmHg MICAELA(V,A) 2.9 cm\S\2 MICAELA(V,D) 2.9 cm\S\2 AI max mark 387.4 cm/sec AI max PG 60.0 mmHg AI dec slope 72.1 cm/sec\S\2 AI P1/2t 1573.3 msec LV V1 max PG 3.2 mmHg LV V1 max 88.9 cm/sec MR max mark 474.3 cm/sec MR max PG 90.0 mmHg PA V2 max 68.2 cm/sec PA max PG 1.9 mmHg PI max mark 158.8 cm/sec PI max PG 10.1 mmHg PI dec slope 95.1 cm/sec\S\2 PI P1/2t 488.8 msec
--- NOTE | 2017-02-28 10:37 | Hospitalist Progress Note ---
Hospitalist Progress Note Date of Service Feb 28, 2017. (Odalis Mcmahan ., PA-C) Subjective Pt evaluation today including: conversation w/ patient, conversation w/ family ( at bedside ), physical exam, lab review, review of studies, review of inpatient medication list Voiding: no voiding problems Patient states he is feeling well this AM. Lying flat in bed w/ no orthopnea. Significant improvement in symptoms since admission. Eating and drinking OK. Denies any chest pain, lightheadedness, orthopnea, SOB, cough, palpitations. Patient denies any fever, chills, sweats, lightheadedness, dizziness, vision changes, CP, palpitations, edema, SOB, wheezing, cough, abdominal pain, nausea, vomiting, diarrhea, urinary symptoms, melena, numbness/tingling, weakness, muscle/joint pain, anxiety/depression, active bleeding, or new skin discoloration/changes. (Odalis Mcmahan ., SIMON-C) Medications Current Inpatient Medications Medications (Trade) Dose Ordered Sig/Chucho Route Start Time Stop Time Status Last Admin Dose Admin Ioversol (Optiray 320) 111 ml UD PRN IV 02/27/17 08:00 03/03/17 07:59 Acetaminophen (Tylenol Tab) 650 mg Q4H PRN PO 02/27/17 09:15 03/29/17 09:14 Ondansetron HCl (Zofran Inj) 4 mg Q6H PRN IV 02/27/17 09:15 03/29/17 09:14 Polyethylene (Miralax Powder Packet) 17 gm DAILY PRN PO 02/27/17 09:15 03/29/17 09:14 Aspirin (Ecotrin Tab) 81 mg QAM PO 02/28/17 09:00 03/30/17 08:59 02/28/17 07:31 81 MG Carvedilol (Coreg Tab) 25 mg BID PO 02/27/17 21:00 03/29/17 20:59 02/28/17 07:33 25 MG Losartan Potassium (coZAAR TAB) 100 mg QAM PO 02/28/17 09:00 03/30/17 08:59 02/28/17 07:32 100 MG Pravastatin Sodium (Pravachol Tab) 40 mg HS PO 02/27/17 21:00 03/29/17 20:59 02/27/17 19:54 40 MG Levalbuterol (Xopenex 1.25MG/ 3ML Neb) 1.25 mg Q6R INH 02/27/17 15:00 03/29/17 14:59 02/28/17 07:13 1.25 MG Metoprolol Tartrate (Lopressor Iv) 5 mg Q4 PRN IV 02/27/17 09:30 03/29/17 09:29 Apixaban (Eliquis Tab) 5 mg BID PO 02/27/17 21:00 03/29/17 20:59 02/28/17 07:33 5 MG Digoxin (Lanoxin Tab) 0.25 mg TODAY@1230 PO 02/28/17 12:30 02/28/17 12:31 Digoxin (Lanoxin Tab) 0.125 mg DAILY@16 PO 02/28/17 16:00 03/30/17 15:59 Diltiazem HCl (Cardizem Cd Cap) 180 mg QAM PO 02/28/17 10:00 03/30/17 09:59 02/28/17 10:04 180 MG (Odalis Mcmahan, NISH) Objective Vital Signs Date Time Temp Pulse Resp B/P (MAP) Pulse Ox O2 Delivery O2 Flow Rate FiO2 02/28/17 10:04 105 02/28/17 08:00 97 Room Air 02/28/17 07:38 36.5 105 20 122/77 (92) 94 Room Air 02/28/17 07:13 91 16 96 Room Air 02/28/17 04:00 97 Room Air 02/28/17 03:40 36.7 68 18 127/82 (97) 96 Room Air 02/28/17 02:08 98 16 92 Room Air 02/28/17 00:00 97 Room Air 02/27/17 23:30 37.2 82 18 116/78 (91) 92 Room Air 02/27/17 20:00 95 Room Air 02/27/17 20:00 36.8 95 18 144/94 (111) 95 Room Air 02/27/17 19:14 85 16 96 Room Air 02/27/17 16:41 37.2 92 20 138/88 (105) 96 Room Air 02/27/17 16:00 95 Room Air 02/27/17 15:18 102 16 96 Room Air 02/27/17 12:00 95 Room Air 02/27/17 11:10 36.7 96 20 134/84 (101) 95 Room Air 02/27/17 11:05 78 18 131/84 96 (Odalis Mcmahan PA-C) Physical Exam General Appearance: no apparent distress Eyes: normal inspection, PERRL ENT: hearing grossly normal Neck: supple Respiratory/Chest: lungs clear, no respiratory distress, no accessory muscle use Cardiovascular: + tachycardia (mildy tachycardic ), + irregularly irregular Abdomen: normal bowel sounds, non tender, soft Extremities: no pedal edema, no calf tenderness Neurologic/Psychiatric: alert, normal mood/affect, oriented x 3 Skin: normal color, warm/dry, no rash (Odalis Mcmahan PA-C) Laboratory Results Last 24 Hours Test 02/27/17 13:13 02/27/17 19:40 02/28/17 07:07 Troponin I 0.016 ng/ml < 0.015 ng/ml White Blood Count 6.29 K/uL Red Blood Count 4.27 M/uL Hemoglobin 13.5 g/dL Hematocrit 39.0 % Mean Corpuscular Volume 91.3 fL Mean Corpuscular Hemoglobin 31.6 pg Mean Corpuscular Hemoglobin Concent 34.6 g/dl RDW Standard Deviation 49.9 fL RDW Coefficient of Variation 14.8 % Platelet Count 161 K/uL Mean Platelet Volume 10.6 fL Sodium Level 137 mmol/L Potassium Level 3.5 mmol/L Chloride Level 104 mmol/L Carbon Dioxide Level 24 mmol/L Anion Gap 9.0 mmol/L Blood Urea Nitrogen 15 mg/dl Creatinine 1.11 mg/dl Est Creatinine Clear Calc Drug Dose 82.9 ml/min Estimated GFR () 77.6 Estimated GFR (Non- 66.9 BUN/Creatinine Ratio 13.4 Random Glucose 107 mg/dl Calcium Level 8.5 mg/dl Magnesium Level 2.2 mg/dl (Odalis Mcmahan PA-C) Assessment and Plan Mr. Muñiz is a 71 y/o man presenting for increased sob over the past two days. Pmhx CABG x4 2012 with ICD, CKD III with baseline creat 1.2 - 1.3, FILIPPO, HTN, A.fib w/ RVR, subsequent acute on chronic systolic CHF- follows w/ Dr. Amaro/ Bettie: - Admitted to tele for cardiac monitoring- a.fib w/ rates 70-110s - Trended cardiac enzymes- negative x3 - EKG w/out acute ischemic changes - Started Eliquis 5 mg BID - IV Diltazem drip for rate control- transition to Digoxin 0.25 mg x1, then 0.125 mg daily and Diltiazem 180 mg QAM today per cardiology -- Digoxin level ordered for tomorrow AM - IV Metoprolol PRN for HR >120 - Treated w/ Lasix 40 mg x1 dose, resume Lasix 20 mg Q2D; continue to monitor I& Os and daily weights - ECHO- EF moderately reduced at 25-30%, left/right atrium dilated, basal segments are mildly hypokinetic with more severe apical hypokinesis, infero- septal apex is dyskinetic - Elevated d-dimer- chest CTA negative for PE - Continue ASA 81 mg daily, Coreg 25 mg BID, Pravastatin 40 mg daily - Keep K level around 4.0- given 40 mEq KCL supplement x1 today - Consult cardiology, appreciate recommendations Pulmonary 9 mm nodule seen on CT: Recommend follow-up CT in 3 months HTN- STABLE: Continue Losartan 100 mg daily DVT prophylaxis: Eliquis Code Status: LEVEL I, FULL Dispo: Discharge to home once medically stable- no discharge needs anticipated Per , patient needs refill on Lasix at discharge (Odalis Mcmahan, PA-C) Reviewed: Pt Seen/Exam by Me (Savannah Trejo MD) History PA Supervision Note: I interviewed and examined the patient. Discussed with SIMON Mcmahan and agree with findings and plan as documented in the note. Any exceptions or clarifications are listed here: Pt is a 71 yo male who p/w cough and worsening SOB over the last 2-3 weeks, thought he had cold symptoms. Then had significant orthopnea and came in for evaluation. Was found to be in A-fib with RVR, acute on chronic systolic CHF. He has not been seen in Cardiology clinic or had pacer interrogated since Apr 2015. Is now transitioned off Cardizem gtt to po Cardizem, Cardio started digoxin loading today. Pt feels much improved. Rates controlled Tele-a-fib with rates in 90s-110 max Vitals reviewed NAD, sitting up in bed, pleasant, alert and oriented x 3 irreg irreg no mgr. lungs with decreased BS at bases, CTAB otherwise Abd +BS soft NT ND Ext no edema, no calf tenderness, 2+ DP pulses Pt is a 71 yo male with a h/o CAD, ischemic CM, chronic systolic CHF s/p single chamber pacer/AICD for primary prevention, CKD stage III, HTN, smoking, here with acute on chronic systolic CHF and rapid atrial fibrillation. CHF brought on by rapid A-fib. Pacer interrogated and it seems his rates have been high more consistently for at least the last 1-2 months. Plan for rate control with diltiazem po and digoxin loading dose today, continue po COreg home dose -continue Eliquis 5mg bid May have some sort of lead issue as per Pacer interrogation--> appreciate EP input -Has already diuresed quite a bit with just one dose of IV lasix-will hold off on more IV lasix given h/o CKD stage III to avoid FILIPPO -restart home po lasix Documented By: Savannah Trejo (Savannah Trejo MD)
[2017-02-28] MEDS ORDERED: FUROSEMIDE 20 MG TAB PO SCH (11:30)
[2017-02-28] MEDS ORDERED: DIGOXIN 0.25 MG TAB PO SCH (12:30)
[2017-02-28] MEDS ORDERED: POTASSIUM CHLORIDE 20 MEQ TABCR PO ONE (13:30)
[2017-02-28] MEDS ORDERED: DIGOXIN 0.125 MG TAB PO SCH (16:00)
[2017-02-28] MEDS: PRAVASTATIN SOD 40 MG TAB PO SCH (20:12)
[2017-03-01 02:17] VITALS: PULSE 75; O2SAT 94
[2017-03-01 03:40] VITALS: BP 145/82; PULSE 88; TEMP 36.6; O2SAT 95
[2017-03-01 06:37] LABS: HEMATOCRIT 41.4 % (42-52); MEAN CELL VOLUME 92.2 fL (80-100); MEAN CORPUSCULAR HEMOGLOBIN 31.6 pg (25-34); MEAN CORPUSCULAR HGB CONC 34.3 g/dl (32-36); MEAN PLATELET VOLUME 10.5 fL (7.4-10.4); PLATELET COUNT 181 K/uL (130-400); RED BLOOD COUNT 4.49 M/uL (4.7-6.1)
[2017-03-01 07:13] LABS: BUN/CREATININE RATIO 14.7 (10-20); CALCIUM 8.9 mg/dl (8.5-10.1); CREATININE 1.07 mg/dl (0.60-1.40); POTASSIUM 3.4 mmol/L (3.5-5.1)
[2017-03-01 07:20] VITALS: PULSE 74; O2SAT 96
[2017-03-01] MEDS: LEVALBUTEROL 1.25MG/3ML NEB INH SCH (07:20)
[2017-03-01 07:22] VITALS: BP 118/81; PULSE 79; TEMP 36.6; O2SAT 94
[2017-03-01] MEDS: DILTIAZEM HCL 180 MG CAPCR PO SCH (08:04)
[2017-03-01] MEDS: ASPIRIN 81 MG ECTAB PO SCH (08:05)
[2017-03-01] MEDS: LOSARTAN POTASSIUM 50 MG TAB PO SCH (08:05)
[2017-03-01] MEDS: CARVEDILOL 25 MG TAB PO SCH (08:05)
[2017-03-01] MEDS: APIXABAN 2.5 MG TAB PO SCH (08:05)
[2017-03-01] MEDS ORDERED: POTASSIUM CHLORIDE 20 MEQ TABCR PO ONE (08:15)
--- NOTE | 2017-03-01 08:52 | Cardiology Follow-Up ---
Subjective Date of Service: Mar 01, 2017. Pt evaluation today including: conversation w/ patient, conversation w/ family , physical exam, lab review, review of studies, review of inpatient medication list History of Present Illness This is a very pleasant 71-year-old gentleman who has a history of coronary artery disease including an anterior myocardial infarction in the past as well as coronary bypass surgery in December of 2011. This all took place in [place] where he lived at the time. He also had left ventricular dysfunction, following surgery he had a repeat echocardiogram showing continued left ventricular dysfunction with ejection fraction of 30-35% and therefore he had an ICD implanted for primary prevention of sudden cardiac . An echocardiogram done here in October 2013 however showed an ejection fraction of 50%. His ICD is a single-chamber unit and was implanted on May 11, 2012 in [place]. He subsequently relocated to the [facility]. His device has alerts in place which produce audible tones in the presence of electrical abnormalities regard the device and the leads, he heard those tones and on evaluation February 12, 2015 he had some short interval counts (these are non physiologic electrical events generally representing outside interference or intrinsic lead problems). 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 This has not recurred. He now presents with symptoms of one month of a cough which he feels was a cold followed by shortness of breath starting on 02/26/2017 and including orthopnea that evening and shortness of breath the next day. He is really not aware of his heart rhythm so we can't go by symptoms as to when his arrhythmia may have started. He did have atrial fibrillation following his surgery in 2011, but none to our knowledge since. He has a single-chamber device so he could've had episodes of atrial fibrillation we were unaware of, however the device does trend heart rates so we may well have seen it that way if he had it. He feels very well today, he has no shortness of breath, no orthopnea, no palpitations and no complaints. Social History Smoking Status: Current Every Day Smoker (smoked for about ten years cigarettes , but still occasionally smokes cigars or cigarettes) History of Alcohol Use: Yes (OCCASSIONALLY) Review of Systems Respiratory: + see HPI, No cough, No wheezing, No shortness of breath, No dyspnea on exertion Cardiac: + see HPI, No chest pain, No orthopnea, No PND, No edema, No palpitations Medications Cardiovascular: Item Value Date Time Digoxin 0.125 mg 02/28/17 1600 (Lanoxin Tab) DAILY@16/PO 02/28/17 1558 Furosemide 20 mg 02/28/17 1130 (Lasix Tab) Q2D@0900/PO 02/28/17 1222 Diltiazem HCl 180 mg 02/28/17 1000 (Cardizem Cd Cap) QAM/PO 03/01/17 0804 Aspirin 81 mg 02/28/17 0900 (Ecotrin Tab) QAM/PO 03/01/17 0805 Losartan Potassium 100 mg 02/28/17 0900 (coZAAR TAB) QAM/PO 03/01/17 0805 Carvedilol 25 mg 02/27/17 2100 (Coreg Tab) BID/PO 03/01/17 0805 Pravastatin Sodium 40 mg 02/27/17 2100 (Pravachol Tab) HS/PO 02/28/172011 Apixaban 5 mg 02/27/17 2100 (Eliquis Tab) BID/PO 03/01/17 0805 Objective Vital Signs Past 12 Hours Date Time Temp Pulse Resp B/P (MAP) Pulse Ox O2 Delivery O2 Flow Rate FiO2 03/01/17 07:22 36.6 79 18 118/81 (93) 94 Room Air 03/01/17 07:20 74 16 96 Room Air 03/01/17 03:40 36.6 88 18 145/82 (103) 95 Room Air 03/01/17 03:05 Room Air 03/01/17 02:17 75 16 94 Room Air 02/28/17 23:55 Room Air 02/28/17 23:42 37.0 80 18 126/80 (95) 93 Room Air 02/28/17 20:52 83 16 95 Room Air Last Recorded Weight-Kilograms: 107.100 Physical Exam Constitutional: General Apperance: heathly-appearing Level of Distress: NAD Lungs: Respiratory effort: no dyspnea, good air movement Auscultation: breath sounds normal, no wheezing Cardiovascular: Heart Auscultation: no murmurs, no rubs, no gallops, irregular rate rhythm Peripheral Pulses: Bruits: none appreciated Extremities: no edema Data Laboratory Results: Last 24 Hours Test 03/01/17 06:20 White Blood Count 5.30 K/uL Red Blood Count 4.49 M/uL Hemoglobin 14.2 g/dL Hematocrit 41.4 % Mean Corpuscular Volume 92.2 fL Mean Corpuscular Hemoglobin 31.6 pg Mean Corpuscular Hemoglobin Concent 34.3 g/dl RDW Standard Deviation 49.6 fL RDW Coefficient of Variation 14.6 % Platelet Count 181 K/uL Mean Platelet Volume 10.5 fL Sodium Level 139 mmol/L Potassium Level 3.4 mmol/L Chloride Level 104 mmol/L Carbon Dioxide Level 28 mmol/L Anion Gap 7.0 mmol/L Blood Urea Nitrogen 16 mg/dl Creatinine 1.07 mg/dl Est Creatinine Clear Calc Drug Dose 85.0 ml/min Estimated GFR () 81.1 Estimated GFR (Non- 70.0 BUN/Creatinine Ratio 14.7 Random Glucose 106 mg/dl Calcium Level 8.9 mg/dl Digoxin Level 0.6 ng/ml Imaging: His echocardiogram shows a mildly dilated left ventricle with moderate left ventricular dysfunction but an ejection fraction reported as 25-30% EKG: Atrial fibrillation with a heart rate of 76 bpm this morning Telemetry reviewed: Atrial fibrillation with a well-controlled heart rate today Assessment and Plan #1. Atrial fibrillation: Since he is not aware of palpitations and his symptoms on presentation are congestive heart failure it is not clear when his arrhythmia started. ICD interrogation however is helpful in that it documents several episodes of increased heart rate which is consistent with periods of atrial fibrillation. He has had a number of paroxysmal episodes over the last year as well as onset of his current episode perhaps 6 weeks ago. We therefore need to keep him anticoagulated, this episode may terminate or we can consider cardioversion in the future. Since he has other episodes conversion itself would probably not keep him out of atrial fibrillation for long and we need to consider antiarrhythmic therapy. I would not do that now but can decide that at follow-up. #2. Coronary artery disease: He has known coronary disease but does not have symptoms to suggest active ischemia, even with his arrhythmia. His left degree ejection fraction may have fallen somewhat, however I would not pursue coronary evaluation. #3. Congestive heart failure: He seems to have congestive heart failure based on radiographic imaging, although his BNP and exam do not suggest much in the way of heart failure. I think he probably did retain some fluid related to the atrial arrhythmia, and possibly some element of left ventricular dysfunction, perhaps tachycardia-related. He has recovered well from this with diuresis and I would continue current management and I will repeat the echocardiogram in sinus rhythm in several months. He is on appropriate medications for his cardiomyopathy. #4. Cardiomyopathy: His left degree ejection fraction measures a little bit worse than before, although historically it was in this range. He is now on near optimal medical management (we could consider spironolactone or Entresto in the future but I would not do that now). If his left ventricular ejection fraction remains low once he is in sinus rhythm and after several months of heart rate control we will need to take these steps. #5. ICD: His ICD is operating properly in the mode it is currently programmed to , which is sensing from the pacing tip to the RV coil (he seems to have a lead fracture in the RV ring electrode, known in the past). In this mode the device cannot pace, but he doesn't seem to need it. With data download we can see that his RV tip to RV coil impedance is stable so there is no further lead issue. This is probably acceptable as he does not seem to need pacing. Although this would also obviate backup pacing if he got a shock, most people don't need that and he has not needed a shock. I would therefore recommend continuing to observe his device. I'll make sure that he has a one month follow-up scheduled. Thank you for allowing me to participate in his care.
[2017-03-01] MEDS ORDERED: CRDCD180 PO (09:18)
[2017-03-01] MEDS ORDERED: FURO-85 PO ×2 (09:18→12:01)
[2017-03-01] MEDS ORDERED: MCRK20 PO ×2 (09:18→12:01)
[2017-03-01] MEDS ORDERED: ELQ25 PO (09:18)
[2017-03-01] MEDS ORDERED: LNX125 PO (09:18)
--- NOTE | 2017-03-01 11:21 | Discharge Summary ---
Discharge Summary Date of Service Mar 01, 2017. (Odalis Mcmahan, NISH) Discharge Summary Admission Date: Feb 27, 2017 at 09:22 Discharge Date: Mar 01, 2017 Discharge Disposition: Home Principal Diagnosis: A.fib w/ RVR Problems/Secondary Diagnoses: Acute on chronic systolic CHF Hypokalemia Pulmonary 9 mm nodule seen on CT HTN Procedures: CHEST ONE VIEW PORTABLE HISTORY: Pt c/o new onset afib COMPARISON: Chest 02/11/2015. FINDINGS: Left single lead pacemaker/defibrillator. The heart is borderline enlarged. There are poststernotomy changes. Trace bilateral pleural effusions. No pneumothorax. Perihilar interstitial and vascular thickening with hazy bibasilar densities. This favors mild pulmonary edema. IMPRESSION: Mild interstitial pulmonary edema and trace bilateral pleural effusions. Electronically signed by: Mat Weldon M.D. 02/27/2017 7:45 AM Dictated Date/Time: 02/27/2017 7:43 AM The status of this report is Signed. Draft = Not yet reviewed or approved by Radiologist. Signed = Reviewed and approved by Radiologist. CHEST CTA for PULMONARY ARTERIES CT DOSE: 734.32 mGy.cm HISTORY: Atrial fibrillation. Short of breath. TECHNIQUE: Multiaxial CT images of the chest were performed following the intravenous administration of contrast to evaluate the pulmonary arteries. Maximal intensity projection images were also obtained. A dose lowering technique was utilized adhering to the principles of ALARA. COMPARISON STUDY: Chest 02/27/2017. FINDINGS: Suboptimal opacification of the aorta due to the timing of contrast. However, no evidence for a dissection. The thoracic aorta is normal in caliber. The visualized liver, spleen, and adrenal glands are unremarkable. Small bilateral pleural effusions. Left-sided pacemaker. The heart is mildly enlarged. Multiple mediastinal nodes. The majority of these measure subcentimeter in short axis diameter. No hilar lymphadenopathy. Poststernotomy changes. No pneumothorax. The central airways are patent. Mild interlobular septal thickening. Mild groundglass densities at the lung bases likely represent dependent change. Otherwise, no focal lung consolidations to suggest pneumonia. A 9 mm peripheral nodule within the right upper lobe on image 223. This contains a small amount of calcification. The bilateral lower lobe subsegmental pulmonary arteries are not well visualized due to respiratory motion artifact. However, the remaining pulmonary arteries show no filling defects to suggest pulmonary embolus. IMPRESSION: 1. No evidence for bone embolus. 2. Mild interlobular septal thickening, mild cardiomegaly, and small bilateral pleural effusions. This is consistent with mild pulmonary edema. 3. A 9 mm partially calcified right upper lobe pulmonary nodule. Please refer to the chart below for recommended follow-up. Please refer to below summary of Fleischner criteria recommendations for follow-up of incidental CT nodules (Gama Arboleda, Guidelines for management of small pulmonary nodules detected on CT scans: A statement from the Fleischner Society, Radiology 237: [phone].) SOLID NODULES Solitary nodule size: <6 mm * Low risk patients: no follow-up needed * high risk patients: optional CT at 12 months Solitary nodule size: 6-8 mm * Low risk patients: follow-up at 6-12 months, then consider further follow-up at 18-24 months * high risk patients: initial follow-up CT at 6-12 months and then at 18-24 months if no change Solitary nodule size: >8 mm * either low or high risk patients - consider follow-up CT at 3 months, and/or CT-PET, and/or biopsy Multiple nodules size: <6 mm * Low risk patients: no routine follow-up * high risk patients: optional CT at 12 months Multiple nodules size: 6-8 mm * Low risk patients: follow-up at 3-6 months, then consider further follow-up at 18-24 months * high risk patients: follow-up at 3-6 months, then at 18-24 months if no change Multiple nodules size: >8 mm * Low risk patients: follow-up at 3-6 months, then consider further follow-up at 18-24 months * high risk patients: follow-up at 3-6 months, then at 18-24 months if no change Note: newly detected indeterminate nodule in persons 35 years of age or older. * Low risk patients: minimal or absent history of smoking and/or other known risk factors * high risk patients: history of smoking or of other known risk factors (e.g. first degree relative with lung cancer, or exposure to asbestos, radon, uranium) * if a nodule up to 8 mm is partly solid or is ground glass further follow-up is required after 24 months to exclude possible slow growing adenocarcinoma (URI) SUBSOLID NODULES Solitary pure ground-glass nodule * nodule size <6 mm - no CT follow-up required * nodule size >=6 mm - follow-up CT at 6-12 months, then every 2 years until 5 years Solitary part-solid nodule * nodule size <6 mm - no CT follow-up required * nodule size >=6 mm - follow-up CT at 3-6 months. If unchanged, and solid component remains <6 mm, then annual follow-up for 5 years Multiple subsolid nodules * nodule size <6 mm - follow-up CT at 3-6 months, consider further follow-up at 2 and 4 years if stable * nodule size >=6 mm - follow-up CT at 3-6 months, subsequent management based on the most suspicious nodule(s) Electronically signed by: Mat Weldon M.D. 02/27/2017 8:27 AM Dictated Date/Time: 02/27/2017 8:19 AM The status of this report is Signed. Draft = Not yet reviewed or approved by Radiologist. Signed = Reviewed and approved by Radiologist. ECHOCARDIOGRAM: Interpretation Summary * Name: LETTY LEONARDO Study Date: 02/27/2017 01:17 PM BP: 134/84 mmHg * Patient Location: [facility]\S\S239\S\2 HR: 93 * : 1945 (M/d/yyyy) Gender: Male Height: 75 in * Age: 71 yrs Ethnicity: CA Weight: 242 lb * Ordering Physician: Celia Harrison * Referring Physician: Self, Referred * Performed By: Nia Murrieta, [facility] * * Reason For Study: A-FIB * BSA: 2.4 m2 * -- Conclusions -- * The left ventricle is mildly dilated. * Left ventricular systolic function is moderately reduced. * Thrombus can not be excluded. * There are regional wall motion abnormalities as specified. * The left atrium is severely dilated. * The right atrium is moderately dilated. * Aortic valve sclerosis mild, without significant aortic valvular stenosis. * Mild to moderate aortic regurgitation. * There is mild mitral regurgitation. Procedure Details * A complete two-dimensional transthoracic echocardiogram was performed (2D, M- mode, Doppler and color flow Doppler). Left Ventricle * The left ventricle is mildly dilated. * Thrombus can not be excluded. * There is borderline concentric left ventricular hypertrophy. * Left ventricular systolic function is moderately reduced. * Ejection Fraction = 25-30%. * There are regional wall motion abnormalities as specified. * Basal segements are mildly hypokinetic with more severe apical hypokinesis. The infero-septal apex is dyskinetic. Right Ventricle * The right ventricle is grossly normal size. * There is a pacemaker lead in the right ventricle. * The right ventricular systolic function is normal. Atria * The left atrium is severely dilated. * The right atrium is moderately dilated. Mitral Valve * The mitral valve anatomy is normal. * There is mild mitral regurgitation. Tricuspid Valve * The tricuspid valve is not well visualized, but is grossly normal. * There is trace tricuspid regurgitation. Aortic Valve * Aortic valve sclerosis mild, without significant aortic valvular stenosis. * No hemodynamically significant valvular aortic stenosis. * Mild to moderate aortic regurgitation. Great Vessels * The aortic root is normal size. Pericardium/Pleural * There is no pericardial effusion. Great Vessels * Normal inferior vena cava diameter and respiratory variation suggests normal central venous pressure. Consultations: Cardiology- Dr. Amaro (Odalis Mcmahan, PA-C) Problems/Secondary Diagnoses: CAD s/p CABG CKD Stage III Pacemaker/AICD in situ for primary prevention Mild to moderate aortic regurgitation mild mitral regurgitation Procedures: Pacer interrogation (Savannah Trejo MD) Medication Reconciliation New Medications: Potassium Chloride (Klor-Con M20) 20 Meq Tabcr 10 MG PO Q2D for 30 Days, #8 TABS Apixaban (Eliquis) 2.5 Mg Tab 5 MG PO BID for 30 Days, #120 TAB Digoxin (Digoxin) 0.125 Mg Tab 0.125 MG PO DAILY@16 for 30 Days, #30 TAB Diltiazem HCl (Diltiazem HCl ER) 180 Mg Capcr 180 MG PO QAM for 30 Days, #30 CAP Continued Medications: Aspirin (Aspirin Ec) 81 Mg Tab 81 MG PO QAM Carvedilol (Coreg) 25 Mg Tab 25 MG PO BID, TAB Furosemide (Lasix) 20 Mg Tab 20 MG PO Q2D for 90 Days, #45 TAB (This prescription has been renewed) Losartan Potassium (Cozaar) 100 Mg Tab 100 MG PO QAM, TAB Pravastatin Sodium (Pravastatin Sodium) 40 Mg Tab 1 TAB PO HS for 90 Days, TAB 3 Refills Discharge Exam Review of Systems: Constitutional: No fever, No chills, No sweats, No weakness ENT: No hearing loss Respiratory: No cough, No shortness of breath, No dyspnea on exertion, No hemoptysis Cardiovascular: No chest pain, No edema, No palpitations Abdomen: No pain, No nausea, No vomiting, No diarrhea Musculoskeletal: No joint pain, No muscle pain, No swelling, No calf pain Genitourinary - Male: No hematuria, No dysuria Neurologic: No weakness, No numbness/tingling Psychiatric: No depression symptoms, No anxiety Endocrine: No fatigue Hematologic / Lymphatic: No abnormal bleeding/bruising Integumentary: No rash, No itch, No new/changing skin lesions Physical Exam: General Appearance: no apparent distress Eyes: normal inspection, PERRL ENT: hearing grossly normal Neck: supple Respiratory/Chest: lungs clear, no respiratory distress, no accessory muscle use Cardiovascular: + irregularly irregular (rate controlled) Abdomen / GI: normal bowel sounds, non tender, soft Extremities: no calf tenderness, no pedal edema Neurologic/Psychiatric: alert, normal mood/affect, oriented x 3 Skin: normal color, warm/dry, no rash (Odalis Mcmahan, KARTHIKC) Hospital Course Admission H&P: Mr. Leonardo presents today with sob since yesterday with a non productive cough. He was in bed all day yesterday due to sob but by night could not breathe laying down. He had been feeling that he was getting a cold for the few days before that. He has had no change in his diet recently and follows a vegan diet. No chest pain or palpitations. No nausea or vomiting. He briefly had A.fib after his CABG 5 years ago while still in the hospital but has not experienced it since. The defibrillator was placed after the incident but has never picked up any other incidents of A.fib. He follows with Dr. Alexandre and Dr. Cedillo for cardiology. Hx CKD III, CABG x 4, and CAD. He is normally pretty active and walks a lot. Physical Exam Vital Signs Date Time Temp Pulse Resp B/P (MAP) Pulse Ox O2 Delivery O2 Flow Rate FiO2 02/27/17 08:36 106 19 137/93 94 02/27/17 08:26 114 128/93 02/27/17 08:25 115 24 128/93 94 Room Air 02/27/17 07:57 113 16 96 Room Air 02/27/17 07:00 95 Room Air 02/27/17 06:56 121 02/27/17 06:51 94 Room Air 02/27/17 06:43 36.5 146 20 139/103 95 Room Air General: no distress Eyes: normal inspection, PERLL Respiratory: chest non tender, expiratory wheezes bilaterally throughout, no respiratory distress, no accessory muscle use Cardiac: irregular rate and rhythm, no rub or gallop, no murmur, no edema, GI/: active bowel sounds, no abd pain or tenderness, soft, non distended Extremities: normal range of motion, normal strength, non tender Neuro/Psych: alert and oriented x 3, normal mood and affect Skin: normal color, dry Hospital Course: Mr. Leonardo is a 71 y/o man presenting for increased sob over the past two days. Pmhx CABG x4 2012 with ICD, CKD III with baseline creat 1.2 - 1.3, FILIPPO, HTN, A.fib w/ RVR, subsequent acute on chronic systolic CHF- follows w/ Dr. Amaro/ Bettie: - Admitted to tele for cardiac monitoring- a.fib w/ rates 70-110s - Trended cardiac enzymes- negative x3 - EKG w/out acute ischemic changes - Eliquis 5 mg BID - IV Diltazem drip for rate control- transition to Digoxin 0.25 mg x2, then 0.125 mg daily and Diltiazem 180 mg QAM per cardiology -- Digoxin level 0.6 - IV Metoprolol PRN for HR >120 - Treated w/ Lasix 40 mg x1 dose, resume Lasix 20 mg Q2D; continue to monitor I& Os and daily weights - ECHO- EF moderately reduced at 25-30%, left/right atrium dilated, basal segments are mildly hypokinetic with more severe apical hypokinesis, infero- septal apex is dyskinetic - Elevated d-dimer- chest CTA negative for PE - Continue ASA 81 mg daily, Coreg 25 mg BID, Pravastatin 40 mg daily - Consult cardiology, appreciate recommendations Hypokalemia: - Replaced with KCL 40 mEq on 02/28 and 03/01 - Started KCL 10 mEq Q2D on days when taking Lasix at discharge- recommend PCP follow PRP Pulmonary 9 mm nodule seen on CT: Recommend follow-up CT in 3 months HTN- STABLE: Continue Losartan 100 mg daily DVT prophylaxis: Eliquis Code Status: LEVEL I, FULL Dispo: Discharge to home Total Time Spent: Greater than 30 minutes This includes examination of the patient, discharge planning, medication reconciliation, and communication with other providers. (Odalis Mcmahan, NISH) Discharge Instructions Please refer to the electronic Patient Visit Report (Discharge Instructions) for additional information. (Odalis Mcmahan PA-C) Follow-Up Please follow-up with your PCP within 5-7 days Please follow-up with Cardiology within 1 month Please follow-up/keep all of your subspecialty appointments (Odalis Mcmahan PA-C) Additional Copies To RV. Rondon MD; Denver Amaro M.D. Reviewed: Pt Seen/Exam by Me (Savannah Trejo MD) History PA Supervision Note: I interviewed and examined the patient. Discussed with SIMON Mcmahan and agree with findings and plan as documented in the note. Any exceptions or clarifications are listed here: Pt is a 71 yo male who p/w cough and worsening SOB over the last 2-3 weeks, thought he had cold symptoms. Then had significant orthopnea and came in for evaluation. Was found to be in A-fib with RVR, acute on chronic systolic CHF. He has not been seen in Cardiology clinic or had pacer interrogated since Apr 2015. Is now transitioned off Cardizem gtt to po Cardizem, Cardio started digoxin. Pt feels much improved. Rates controlled, cough almost completely resolved Ready for discharge to home. Now on Eliquis for stroke prevention Tele-a-fib with rates in 60s-low 100s max Vitals reviewed NAD, sitting up in bed, pleasant, alert and oriented x 3 irreg irreg no mgr. lungs with decreased BS at bases, very faint exp wheeze left base and right mid lung field Abd +BS soft NT ND Ext no edema, no calf tenderness, 2+ DP pulses Pt is a 71 yo male with a h/o CAD, ischemic CM, chronic systolic CHF s/p single chamber pacer/AICD for primary prevention, CKD stage III, HTN, smoking, here with acute on chronic systolic CHF and rapid atrial fibrillation. CHF brought on by rapid A-fib. Pacer interrogated and it seems his rates have been high more consistently for at least the last 1-2 months. Plan for rate control with diltiazem po and digoxin started in house, continue po COreg home dose -continue Eliquis 5mg bid -was diuresed quite a bit with just one dose of IV lasix-return to home po lasix 20mg every other day and added on KCl po 10 meq every other day STable for dc to home Documented By: Savannah Trejo (Savannah Trejo MD)
--- NOTE | 2017-03-01 11:21 | Discharge Instructions ---
Discharge Instructions Date of Service Mar 01, 2017. Admission Reason for Admission: Atrial Fibrillation With Rvr Discharge Discharge Diagnosis / Problem: Atrial fibrillation with RVR Discharge Goals Goal(s): Decrease discomfort, Improve function, Increase independence, Improve disease control, Learn about illness, Diagnostic testing, Therapeutic intervention, Prevent Disease Progression Activity Recommendations Activity Limitations: resume your previous activity . Instructions / Follow-Up Instructions / Follow-Up New Medications: Diltiazem 180 mg daily Digoxin 0.125 mg Eliquis 5 mg twice daily- this medication is an anticoagulant (blood thinner) Potassium Chloride supplement 10 mEq every other day (on days when you take Lasix) Continue all other regular home medications as prescribed. FOLLOW-UPS: Please follow-up with your PCP within 5-7 days Please follow-up with Cardiology within 1 month Please follow-up/keep all of your subspecialty appointments Current Hospital Diet Patient's current hospital diet: AHA Diet (Heart Healthy) Discharge Diet Recommended Diet: AHA Diet (Heart Healthy) Pending Studies Studies pending at discharge: no Laboratory Results Hemoglobin A1c Test 01/13/17 11:41 Range/Units Estimated Average Glucose 120 mg/dl Hemoglobin A1c 5.8 H 4.5-5.6 % Medical Emergencies . Who to Call and When: Medical Emergencies: If at any time you feel your situation is an emergency, please call 911 immediately. . Non-Emergent Contact Non-Emergency issues call your: Primary Care Provider . . "Provider Documentation" section prepared by Odalis Mcmahan. . VTE Core Measure Inpt VTE Proph given/why not?: Other Anticoagulation
[2017-03-01 11:34] VITALS: BP 119/80; PULSE 82; TEMP 36.4; O2SAT 94
[2017-03-01 12:07] VITALS: BP 119/80; PULSE 82; TEMP 36.4; O2SAT 94
== END 2017-03-01 12:40 | disposition home or self-care (01) | DRG 308 ==
LOC: C.EDB 06:43 → C.2T 09:22 → ENRESERV 09:56
PROVIDERS: ADMIT Family Medicine; ATTEND Family Medicine
DX: I48.91 Unspecified atrial fibrillation (principal); I50.23 Acute on chronic systolic (congestive) heart failure; I13.0 Hypertensive heart and chronic kidney disease with heart failure and stage 1 through stage 4 chronic kidney disease, or unspecified chronic kidney disease; N17.9 Acute kidney failure, unspecified; Z82.49 Family history of ischemic heart disease and other diseases of the circulatory system; Z83.3 Family history of diabetes mellitus; Z79.82 Long term (current) use of aspirin; Z95.1 Presence of aortocoronary bypass graft; Z95.810 Presence of automatic (implantable) cardiac defibrillator; I25.10 Atherosclerotic heart disease of native coronary artery without angina pectoris; N18.3 Chronic kidney disease, stage 3 (moderate); F17.210 Nicotine dependence, cigarettes, uncomplicated; R91.1 Solitary pulmonary nodule

== ENCOUNTER → 2017-06-21 | Outpatient (CLI) | payer OTHER ==
[~2017-06-21] MED LIST changes: +CRDCD180 PO; +ELQ25 PO; +LNX125 PO; +MCRK20 PO
--- NOTE | 2017-06-21 08:52 | DIAGNOSTIC IMAGING REPORT ---
(CHEST) THORAX WITHOUT CLINICAL HISTORY: 71 years-old Male presenting with R91.1 Lung nodule. TECHNIQUE: Multidetector CT imaging of the chest was performed without the use of intravenous contrast. IV contrast: None. A dose lowering technique was used consistent with the principles of ALARA (as low as reasonably achievable). COMPARISON: 02/27/2017. CT DOSE (mGy.cm): The estimated cumulative dose is 669.85 mGycm. 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 Median sternotomy wires also noted. On soft tissue windows, normal thyroid and thoracic inlet. No axillary, supraclavicular, or mediastinal lymphadenopathy. Evaluation of the brennan limited without intravenous contrast. Atherosclerosis of the aorta. Normal heart size. Coronary artery calcification. Postsurgical changes of coronary artery bypass grafting. No pericardial or pleural effusion. Subcentimeter hypodensity in the left lobe of the liver, indeterminate but likely hepatic cyst or hamartoma, unchanged from prior. On lung windows, interval resolution of intralobular septal thickening, groundglass opacities, and pleural effusions. Minimal dependent changes likely atelectasis. Stable size and appearance of the 8 mm peripheral solid nodule in the right upper lobe (series 4 image 95), which contains eccentric coarse calcification. No new nodule or infiltrate. Central airways patent. On bone windows, normal osseous structures. IMPRESSION: 1. Stable appearance of the partially calcified solid 8 mm right upper lobe nodule. This may represent a benign pulmonary hamartoma. Follow-up as clinically indicated. 2. Post surgical changes of CABG. 3. Resolution of pulmonary edema and pleural effusions since prior exam. No acute intrathoracic pathology. Please refer to below summary of Fleischner Society 2017 recommendations for follow-up of incidental CT nodules (H Nkechi et al. Guidelines for management of incidental pulmonary nodules detected on CT images: From the Fleischner Society 2017. Radiology 2017; 284: 228-243.) SOLID NODULES Single nodule; size < 6 mm * Low risk patients: No routine follow-up * High risk patients: Optional CT at 12 months Single nodule; size 6-8 mm * Low risk patients: CT at 6-12 months, then consider CT at 18-24 months * High risk patients: CT at 6-12 months, then at 18-24 months Single nodule; size > 8 mm * Either low or high risk patients: Considered CT at 3 months, PET/CT, or tissue sampling Multiple nodules; size < 6 mm * Low risk patients: No routine follow up * High risk patients: Optional CT at 12 months Multiple nodules; size 6-8 mm * Low risk patients: CT at 3-6 months, then consider CT at 18-24 months * High risk patients: CT at 3-6 months, then at 18-24 months Multiple nodules; size > 8 mm * Low risk patients: CT at 3-6 months, then consider at 18-24 months * High risk patients: CT at 3-6 months, then at 18-24 months SUBSOLID NODULES Single ground-glass nodule * Nodule size < 6 mm: No routine follow-up * Nodule size > or = 6 mm: CT at 6-12 months to confirm persistence, then CT every 2 years until 5 years Single part-solid nodule * Nodule size < 6 mm: No routine follow-up * Nodules size > or = 6 mm: CT at 3-6 months to confirm persistence. If unchanged and solid component remains < 6 mm, annual CT should be performed for 5 years Multiple nodules * Nodule size < 6 mm: CT at 3-6 months. If stable, consider CT at 2 and 4 years. * Nodules size > or = 6 mm: CT at 3-6 months. Subsequent management based on the most suspicious nodule(s) NOTE: These guidelines apply to incidental nodules. These guidelines do not apply to patients younger than 35 years, immunocompromised patients, or patients with cancer. * Low risk patients: Minimal or absent history of smoking and/or other known risk factors * High risk patients: History of smoking, exposure to other carcinogens, emphysema, fibrosis, upper lobe location, family history of lung cancer, etc. If a nodule up to 8 mm is partly solid or is ground glass, further follow-up is required after 24 months to exclude possible slow growing adenocarcinoma. Electronically signed by: Bobby Henderson M.D. 06/21/2017 8:50 AM Dictated Date/Time: 06/21/2017 8:45 AM
== END | disposition home or self-care (01) ==
LOC: C.CTS 08:27
PROVIDERS: ATTEND Internal Medicine Critical Care Medicine
DX: R91.1 Solitary pulmonary nodule (principal); Z95.1 Presence of aortocoronary bypass graft

== ENCOUNTER → 2017-07-04 | Outpatient (CLI) | payer OTHER ==
[2017-07-04 10:13] LABS: ALBUMIN 3.7 gm/dl (3.4-5.0); BLOOD UREA NITROGEN 12 mg/dl (7-18); CALCIUM 9.2 mg/dl (8.5-10.1); CARBON DIOXIDE 25 mmol/L (21-32); CREATININE 1.15 mg/dl (0.60-1.40); GLUCOSE 113 mg/dl (70-99); POTASSIUM 4.1 mmol/L (3.5-5.1); SODIUM 138 mmol/L (136-145)
[2017-07-04 10:18] LABS: CHOLESTEROL 131 mg/dl (0-200); LDL CHOLESTEROL CALCULATED 64 mg/dl; PHOSPHORUS 2.9 mg/dl (2.5-4.9)
== END | disposition home or self-care (01) ==
LOC: C.LAB1850 08:30
PROVIDERS: ATTEND Internal Medicine
DX: I25.10 Atherosclerotic heart disease of native coronary artery without angina pectoris (principal); N18.2 Chronic kidney disease, stage 2 (mild)

== ENCOUNTER 2020-08-28 12:12 | Observation (INO) ==
[2020-08-28] MEDS ORDERED: LIDOCAINE 1% LOCAL 20 ML VIAL ONE (14:06)
[2020-08-28] MEDS ORDERED: WATER, STERILE FOR INJ 10 ML VIAL ONE (14:06)
[2020-08-28] MEDS ORDERED: MIDAZOLAM HCL 5 MG/ML 1 ML VIAL ONE (14:06)
[2020-08-28] MEDS ORDERED: VANCOMYCIN HCL 1000MG/20ML VIAL ONE (14:06)
[2020-08-28] MEDS ORDERED: fentaNYL citrate 100 MCG/2 ML VIAL ONE (14:06)
--- NOTE | 2020-08-28 14:17 | History & Physical Bridge Note ---
Date of Service August 28, 2020 History & Physical Bridge Note I have examined the patient, reviewed the History & Physical and in the interval since the performance of the History & Physical I have noted the following changes of clinical significance: no changes noted. I reviewed the indications, procedure, risks and alternatives with the patient, answered all questions. Consent obtained. Patient understands and agrees to the procedure. I also reviewed the risks and use of sedation, patient understands and consent obtained.
--- NOTE | 2020-08-28 14:18 | Pre Anesthesia Assessment ---
Date of Service August 28, 2020 Pre Sedation Assessment Vital Signs Temp Pulse Resp BP Pulse Ox 08/28/20 12:31 36.5 C 82 18 149/95 H 95 Cardiovascular RRR, no murmur, no edema Respiratory normal respiratory effort, lungs clear to auscultation Pre-Sedation Airway Assessment Smoking Status: Former smoker Hx Sleep Apnea: No Short, Thick Neck: No Thyromental Distance: > or= 3.5 Finger Breadths Oral Cavity: + Loose Teeth Mallampati Class: III ASA: ASA2 NPO Status Date of Last Intake of Fluids: 08/27/20 Time of Last Intake of Fluids: 21:00 Date of Last Intake of Solid Food: 08/27/20 Time of Last Intake of Solid Foods: 19:00 Procedure Planning Contraindications for Sedation: none Current Medications Reviewed: Yes Notes The planned sedation has been discussed with the patient. Informed Consent was obtained. I have identified the patient, determined the appropriateness of sedation and have assessed the patient immediately prior to the procedure. All medicine(s) and interventions are by my order.
[2020-08-28] MEDS ORDERED: BACITRACIN OINT 0.9 GM PKT ONE (15:32)
--- NOTE | 2020-08-28 16:12 | Electrophysiology Report ---
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 After identification in the laboratory the patient was prepped and draped in the standard sterile manner for a left-sided device replacement. Dye was injected the left arm IV site to opacify the left subclavian vein. The subclavian vein was identified and found to be free of obstruction although there did appear to be delayed opacification and there was the presence of collaterals. The left prepectoral region was anesthetized with 1% lidocaine local anesthetic and once adequate anesthesia was obtained a 6 cm incision was made through the old implant scar and carried down to the pectoralis fascia, the original ICD implan tation was in a submuscular location. The pectoral muscles were split in the direction of the muscle fibers down to the ICD generator. The generator was dissected free of tissue and explanted. The ICD was removed from the lead which was connected to an external pacing system. Pacing and sensing characteristics were evaluated in the chronic ventricular lead, as determined from ICD evaluation the tip electrode had no electrical continuity and the ring electrode had electrical noise when the lead was manipulated. A new lead was therefore required. Left axillary venipuncture was performed through the open incision and a guidewire placed through the left subclavian vein into the superior vena cava. An ICD pocket was formed by blunt dissection anterior to the pectoralis fascia. A 10.5 [place] Medtronic lead introducer was placed over the guidewire into the left subclavian vein, the dilator and guidewire were removed and a bipolar dual coil active fixation steroid tipped ventricular ICD lead was advanced through the introducer into the superior vena cava. A guidewire was placed through the introducer and the introducer was stripped from the lead and guidewire. Using a curved stylette the ventricular lead was advanced through the right ventricular outflow tract into the pulmonary artery and then using a straight stylette was positioned near the right ventricular apex taking care that this lead was not in contact with the chronic lead. The screw was extended fixing the lead in position. Pacing and sensing thresholds were evaluated in bipolar configuration and are recorded on the implant data sheet. Once the lead was in position it was attached to the anterior pectoralis fascia using 2 sutures of 2-0 silk around the lead collar. The chronic ventricular lead was capped and placed in the new pocket which was formed anterior to the pectoralis fascia. The ICD was attached to the lead and placed in the new pocket with the lead coiled beneath it. The incision was closed with a running double subcutaneous closure of 3-0 Vicryl absorbable suture, followed by running subcuticular skin closure of 4-0 Vicryl absorbable suture. Bacitracin ointment was placed on the incision and a dressing applied. [facility] Electrophysiology codes Indication for Procedure (1) Malfunction of implantable defibrillator ventricular (ICD) lead: ICD Procedure 1: ICD: 82627 Removal of pulse generator only Procedure 2: ICD: 56034 Insert single or dual ICD system Miscellaneous Procedures Procedure 1: EP Miscellaneous: 93998 Contrast injection for venography Procedure 2: EP Miscellaneous: 64749-55 Vengraphy, extremity PG Moderate Sedation Codes Moderate Sedation Codes Procedure 1: Sedation/Anesthesia: 57760 Mod Sedation by the same physician;Init15 Min Child Age 5 & Up Procedure 2: Sedation/Anesthesia: 00016 Mod Sedation by the same physician; Ea [id number] Minutes
[2020-08-28] MEDS ORDERED: KETOROLAC TROMETHAMINE 10 MG TABLET PO PRN (16:18)
--- NOTE | 2020-08-28 16:25 | Post Anesthesia Assessment ---
Date of Service August 28, 2020 Post Sedation Assessment Vital Signs Temp Pulse Resp BP Pulse Ox 08/28/20 16:10 71 20 152/102 H 94 08/28/20 12:31 36.5 C 82 18 149/95 H 95 Recovery Score Activity: Moves 4 extremities Respiration: Deep Breath/Cough Circulation: +/-20% PreAnes Value Consciousness: Fully Awake Oxygen Saturation: > 92% On Room Air Post Anesthesia Score: 10 Discharge Sedation Level of Care: Fast Track Phase II Post Sedation Plan On clinical assessment, the patient appears to have tolerated the sedation without complications. Patient is recovering as anticipated. Patient will continue to be monitored by nursing and may be discharged when sedation discharge criteria are met per below protocol. Upon Completions of procedure up to 15 minutes continue every 5 minute vital signs and the P.A.R. score; then discharge to a Phase I or Fast Track to Phase II per the following guidelines: * Discharge Patient to appropriate Phase II area if PAR is 8 or greater or return to pre- procedure baseline. The post - procedure orders will be as directed. * If PAR score is less than 8 or not return to pre-procedure baseline then patient will follow Phase I monitoring till PAR is reached for Phase II. The Phase I may be done in procedure room or may call to secure a Phase I area. * If naloxone or flumazenil are used for reversal, hold in Phase I for continued monitoring from when last reversal dose was given for a minimum of 60 minutes or longer pending the nurse and/or physician discretion of patient condition before discharge to Phase II. Please call the Sedation Physician to re-evaluate and complete post-note for discharge to Phase II area. Do NOT discharge from procedure sedation or Phase 1 until post- sedation evaluation note is complete by procedure /sedation MD Sedation Discharge Instructions to be given to the patient at discharge to home.
[2020-08-28] MEDS: carvediloL 25 MG TAB PO SCH (17:19)
[2020-08-28] MEDS: ACETAMINOPHEN 325 MG TAB PO PRN (18:46)
[2020-08-28] MEDS: BENZONATATE 100 MG CAPSULE PO SCH (20:48)
[2020-08-29] MEDS: ACETAMINOPHEN 325 MG TAB PO PRN (04:19)
--- NOTE | 2020-08-29 08:15 | XRay Report ---
XR chest 2V PA/lateral CLINICAL HISTORY: Chest x-ray status post pacemaker placement COMPARISON STUDY: 05/07/2019 FINDINGS: There is been placement of a left subclavian pacer/defibrillator. The old electrode lead fr om the prior pacemaker has been left in position. There are postsurgical changes of a midline sternot perla. There is no failure. There is no focal pulmonary consolidation. There are no pleural effusions. No pneumothorax is visualized.[ IMPRESSION: No evidence of pneumothorax status post placement of a left subclavian pacer/defibrillato r. ACT 112: Negative or not required by law. Electronically signed by: Markus Goetz M.D. 08/29/2020 8:13 AM
[2020-08-29] MEDS: BENZONATATE 100 MG CAPSULE PO SCH (08:35)
[2020-08-29] MEDS: carvediloL 25 MG TAB PO SCH (08:35)
[2020-08-29] MEDS ORDERED: dilTIAZem HCL 180 MG CAPCR PO SCH (09:00)
[2020-08-29] MEDS ORDERED: FUROSEMIDE 20 MG TAB PO SCH (09:00)
[2020-08-29] MEDS ORDERED: LOSARTAN POTASSIUM 50 MG TAB PO SCH (09:00)
[2020-08-29] MEDS ORDERED: DIGOXIN 0.125 MG TAB PO SCH (09:00)
[2020-08-29] MEDS ORDERED: PRAVASTATIN SOD 40 MG TAB PO SCH (09:00)
[2020-08-29] MEDS ORDERED: ASPIRIN 81 MG ECTAB PO SCH (09:00)
[2020-08-29] MEDS ORDERED: POTASSIUM CHLORIDE CRTAB 20 MEQ TABCR PO SCH (09:00)
--- NOTE | 2020-08-29 09:03 | Cardiology Progress Note ---
Date of Service August 29, 2020 Assessment & Plan (1) Status post implantation of automatic cardioverter/defibrillator (AICD): He is doing well post device implantation, he has a large hematoma due to having to dissect the old device from under the musculature however the new device is placed subcutaneously in the normal position and the lead was moved to that position as well. He is not having any active bleeding is near as I can tell. His x-ray looks good, the device evaluation is excellent and he can go home. I will wait until tomorrow night to start Eliquis due to the hematoma. Admission and Anticipated Discharge Date Admission Date: August 28, 2020 Subjective He had some incisional and surgical site discomfort overnight, that has essentially resolved this morning and he feels well. No other complaints, no chest discomfort or shortness of breath. Physical Exam Physical Exam: The surgical site is clean and dry this morning, there evidently was some bleeding last evening and the dressing was changed but none since on the dressing. He does have a large hematoma but that is expected due to the submuscular location of the device. Lungs are clear Cardiac rhythm is regular with no rub Results & Data ([facility]) Vital Signs (Past 12 Hours) Vital Signs Temp Pulse Resp BP Pulse Ox 08/29/20 07:24 36.4 C L 90 19 132/76 98 08/29/20 04:02 36.4 C L 97 H 22 144/104 H 98 08/28/20 23:46 36.6 C 88 18 137/95 96 Diagnostic Findings Postop ECG: Appropriate device inhibition, atrial fibrillation Telemetry: Appropriate device inhibition, atrial fibrillation with an appropriate heart rate ICD evaluation: Excellent pacing and sensing characteristics Chest x-ray: Good lead position, no pneumothorax PG Care Time/CCT Total # of Minutes Spent Total Time Spent with Patient: Total time spent is greater than 50% in coordination of care (as documented) at patient's floor/unit and/or counseling patient: Coding Level of Care Code 68120 Post Operative Follow-Up Diagnoses Status post implantation of automatic cardioverter/defibrillator (AICD) Z95.810
--- NOTE | 2020-08-29 15:33 | Electrocardiogram Report ---
Test Reason : Blood Pressure : / mmHG Vent. Rate : 068 BPM Atrial Rate : 000 BPM P-R Int : 000 ms QRS Dur : 116 ms QT Int : 426 ms P-R-T Axes : 000 048 043 degrees QTc Int : 452 ms Atrial fibrillation Septal infarct (cited on or before 01-MAR-2017) Abnormal ECG When compared with ECG of 01-MAR-2017 06:27, Questionable change in initial forces of Anterior leads Confirmed by Ace Driscoll ([id number]) on 08/29/2020 3:32:42 PM Referred By: Denver Amaro Confirmed By:Ace Driscoll
--- NOTE | 2020-09-10 07:09 | Discharge Summary ---
Date of Service September 10, 2020 Admission HPI Per Admitting Provider This is a 75-year-old gentleman who has a history of coronary artery disease including an anterior myocardial infarction in the past as well as coronary bypass surgery in December of 2011. This all took place in [place] where he lived at the time. He also had left ventricular dysfunction, following surgery he had a repeat echocardiogram showing continued left ventricular dysfunction with ejection fraction of 30-35% and therefore he had an ICD implanted for primary prevention of sudden cardiac . This is a single-chamber unit and was implanted on May 11, 2012. He subsequently relocated to the [facility]. His device has alerts in place which produce audible tones in the presence of electrical abnormalities regard the device and the leads, he heard those tones and on evaluation February 12, 2015 he had some short interval counts (these are non physiologic electrical events generally representing outside interference or intrinsic lead problems). The device pocket was manipulated and isometrics were done however the abnormalities could not be reproduced. They were present only on the rate sensing lead suggesting that they were not an external source of interference. There was no immediate danger therefore it was elected to watch however the abnormality continued. We were able to eliminate the over sensing by reprogram the device to sense between the distal electrode and the RV coil, however this eliminates the possibility of pacing. Since he does not require it as a pacemaker and he has not received ICD shocks we have left him in this configuration. He was identified as having atrial fibrillation in February 2017, the heart rate was fast and his medications were adjusted to control his heart rate (with addition of digoxin and diltiazem), he remained on carvedilol. He was a little bit fluid overloaded and was diuresed. He was anticoagulated with Eliquis, on which he remains. His device has been approaching replacement time, with that and the lead abnormality noted above we felt we should replace his device. I did get an echocardiogram prior to that surgery, this was done on August 08, 2020 and shows his left ventricle to be moderately dilated with moderate left ventricular dysfunction and ejection fraction of 40 to 45%. There were wall motion abnormalities. He did have moderate left atrial dilatation as well and a sclerotic aortic valve with mild regurgitation. He also had mild mitral regurgitation. Admission Exam Per Admitting Provider Constitutional: Alert, cooperative and in no distress. HEENT: Unremarkable Neck: No jugular venous distention, carotid pulses are normal and equal bilaterally without bruits. Pulmonary: Clear to auscultation bilaterally. Cardiac: Regular rhythm with no murmur, gallop or rub. Abdomen: Soft, nontender with normal bowel sounds. Extremities: No edema. Distal pulses intact. Neurologic: No focal findings. Gait is steady. Skin: The device site is well-healed without erythema, swelling or tenderness. No rash, ecchymoses or petechiae. Principal Diagnosis ICD approaching TODD, lead function Discharge Exam The surgical site is clean and dry, there evidently was some bleeding last evening and the dressing was changed but none since on the dressing. He does have a large hematoma but that is expected due to the submuscular location of the device. Lungs are clear Cardiac rhythm is regular with no rub Discharge Data Allergies Allergy/AdvReac Type Severity Reaction Status Date / Time CHRIS Inhibitors Allergy Unknown Uncoded 06/25/20 11:19 Procedures Performed Operation Date: 08/28/20 13:30 Actual Procedures p ICD Insertion Single or Dual - Denver Amaro MD s Venogram, Unilateral - Denver Amaro MD s Pacer Removal - Denver Amaro MD Ordered Studies 08/28/20 11:20 CL Cath Imgs for PACS use only Routine Hospital Course (1) Status post implantation of automatic cardioverter/defibrillator (AICD): He is doing well post device implantation, he has a large hematoma due to having to dissect the old device from under the musculature however the new device is placed subcutaneously in the normal position and the chronic lead was moved to that position as well. He is not having any active bleeding is near as I can tell. His x-ray looks good, the device evaluation is excellent and he can go home. Total Time Total Time Spent Total Time Spent (In Minutes): 25 Discharge Plan Discharge Items Patient Disposition: Home - Self-Care Reason For Visit: ICD nearing replacement time, lead malfunction Discharge Diagnosis: ICD and lead placement Activity: Per Instructions section Lifting: Gradually increase as tolerated Bathing: May shower/bathe in 3 days Exercise/Sports: Gradually increase as tolerated Driving/Machine Use: No limitations Non-emergency contact: Primary Care Provider Call non-emergency contact if: your symptoms worsen Follow-up/Referrals: Denver Amaro MD [Physician] - 09/02/20 10:30 am Nolan Mcmillan MD [Primary Care Provider] - Diet: Heart Healthy Addtl Attending Provider Instructions: ACTIVITY RECOMMENDATIONS: * Do not raise affected arm over head for 2 weeks. SPECIAL CARE INSTRUCTIONS: * If bleeding occurs, apply direct pressure to area for 5 minutes. * Call your doctor if you have severe pain, fever, drainage or bleeding at site. * Keep dressing on and dry for 48 hours then remove. * Keep any scheduled doctor's appointment. * Implant Card - hand held device with website information given. SKIN IRRITATION: * You may experience some redness and/or swelling in the area where radiation was administered. If any skin irritation occurs, please contact your family physician. FOLLOW UP VISIT: Keep any scheduled doctor appointments. Start Karyquis on the evening of August 30, 2020 Pending Studies at Discharge: No Stand-Alone Forms: My [facility] [employer], Smoking Cessation Medications and DC Order Prescriptions: Continued benzonatate [Tessalon Perles] 100 mg capsule 100 mg PO TID Qty: 20 RF: 0 carvedilol 25 mg tablet 25 mg PO BID Qty: 180 RF: 3 losartan 100 mg tablet 100 mg PO DAILY Qty: 90 RF: 3 furosemide 20 mg tablet 20 mg PO Q OTHER DAY Qty: 45 RF: 3 potassium chloride 20 mEq tablet extended release 20 meq PO Q OTHER DAY Qty: 45 RF: 3 diltiazem HCl 180 mg capsule,extended release 24hr 180 mg PO DAILY Qty: 90 RF: 3 pravastatin 40 mg tablet 40 mg PO DAILY Qty: 90 RF: 3 apixaban 5 mg tablet 5 mg PO BID Qty: 180 RF: 3 digoxin 125 mcg (0.125 mg) tablet 125 mcg PO DAILY Qty: 90 RF: 3 aspirin 81 mg Tablet,Delayed Release (Dr/Ec) 81 mg PO QAM RF: 0 Discharge Orders: Discharge Order (Routine); Ordered 08/29/20 Ordered By: Denver Garay/Other Patient Handouts: Living with a Pacemaker Admission Data Admit Date/Time: 08/28/20 15:23 Attending Provider: Denver Amaro Admit Provider: Denver Amaro Primary Care Provider: Nolan Mcmillan V. Other Interventions: Discharge Summary Assessment (RN) Last Done: 08/29/20 09:24 Coding Level of Care Code 81609 OBS Care - Discharge Diagnoses Status post implantation of automatic cardioverter/defibrillator (AICD) Z95.810 Time Spent (min) 25
== END 2020-08-29 09:35 | disposition home or self-care (01) ==
LOC: EP 12:12 → 2S 12:12
PROC: EPB.ICD (2020-08-28 13:30)
DX: E78.5 Hyperlipidemia, unspecified; Z79.82 Long term (current) use of aspirin; I47.2 Ventricular tachycardia; I25.10 Atherosclerotic heart disease of native coronary artery without angina pectoris; Z87.891 Personal history of nicotine dependence; Z79.01 Long term (current) use of anticoagulants; I25.5 Ischemic cardiomyopathy; Y83.1 Surgical operation with implant of artificial internal device as the cause of abnormal reaction of the patient, or of later complication, without mention of misadventure at the time of the procedure; I10 Essential (primary) hypertension; T82.110A Breakdown (mechanical) of cardiac electrode, initial encounter; Z79.899 Other long term (current) drug therapy; I48.91 Unspecified atrial fibrillation

== ENCOUNTER 2024-11-19 21:58 | Inpatient (IN) ==
[2024-11-19 22:28] LABS: Hematocrit (blood only) 49.9 % (42.0-52.0); Hemoglobin 16.8 g/dl (14.0-18.0); Immature Granulocytes # (auto) 0.04 K/uL (0.01-0.20); Immature Granulocytes % (auto) 0.5 %; Mean Corpuscular Hemoglobin 31.5 pg (25.0-34.0); Mean Corpuscular Volume 93.6 fL (80.0-100.0); Platelet Count 171 K/uL (130-400); RDW Standard Deviation 49.1 fL (36.4-46.3); Red Blood Count 5.33 M/uL (4.70-6.10); White Blood Count 8.53 K/ul (4.8-10.8)
--- NOTE | 2024-11-19 22:42 | Emergency Department Note ---
History of Present Illness General Chief complaint: Shortness of Breath/Dyspnea Stated complaint: SOB - ARM PAIN Time Seen by Provider: 11/19/24 22:07 History of Present Illness This is a 79-year-old male presenting to the emergency department for evaluation of worsening shortness of breath and dyspnea. The patient has extensive past medical history including COPD, CABG x 4, CHF, A-fib, and pacemaker in situ. The patient states many of his symptoms have been ongoing for "a long time". Things seem to be worse over the past few days however. He does not endorse fevers, chills, chest pain, or abdominal pain. He is having difficulty laying down to sleep, and typically sleeps throughout the day when he cannot sleep at night. He also has not been able to sleep throughout the day, and feels much more fatigued than normal. He is taking his medication as prescribed. He did have an echo 2 months ago showing EF of 35 to 40%. No significant weight gain. Patient rates his discomfort a 5/10. Home Medications Medication Instructions Recorded Confirmed Type aspirin 81 mg tablet,delayed 81 mg PO QAM 10/18/18 11/20/24 History release cholecalciferol (vitamin D3) 25 25 mcg PO DAILY 03/26/23 11/20/24 History mcg (1,000 unit) capsule (Vitamin D3) cyanocobalamin (vitamin B-12) 1,000 mcg sublingual UD 03/26/23 11/20/24 History 1,000 mcg sublingual tablet furosemide 20 mg tablet 20 mg PO Q OTHER DAY PRN weight 07/26/23 11/20/24 Rx gain, SOB, edema. #45 tabs BiPap Machine #1 ea 09/21/23 11/12/24 Rx BiPap Supplies #1 ea 09/21/23 11/12/24 Rx diltiazem HCl 180 mg 180 mg PO QAM #90 caps 01/30/24 11/20/24 Rx capsule,extended release 24 hr pravastatin 40 mg tablet 40 mg PO HS #90 tabs 05/14/24 11/20/24 Rx digoxin 250 mcg (0.25 mg) tablet 250 mcg PO DAILY #90 tabs 07/28/24 11/20/24 Rx carvedilol 25 mg tablet 25 mg PO BID #180 tabs 08/07/24 11/20/24 Rx apixaban 5 mg tablet 5 mg PO BID #180 tabs 09/12/24 11/20/24 Rx sacubitril 97 mg-valsartan 103 mg 1 tab PO BID #180 tabs 09/17/24 11/20/24 Rx tablet (Entresto) spironolactone 25 mg tablet 12.5 mg (1/2 x 25 mg) PO DAILY #45 11/06/24 11/20/24 Rx tabs empagliflozin 25 mg tablet 25 mg PO QAM #90 tabs 11/08/24 11/20/24 Rx Allergies Allergy/AdvReac Type Severity Reaction Status Date / Time oyster extract Allergy Severe raw oyster Verified 11/20/24 02:45 toxic reaction CHRIS Inhibitors AdvReac Intermediate CAUSED Verified 11/12/24 09:06 ISSUES WITH KIDNEY VALUES Past Med/Surg History Problem List FILIPPO (acute kidney injury) (Acute) Generalized weakness (Acute) Type 2 diabetes mellitus Acute kidney injury Cardiomyopathy Peripheral neuropathy Diabetes mellitus Complex sleep apnea syndrome Urge to take deep breath Hypersomnolence Gallbladder disease Tinnitus SOBOE (shortness of breath on exertion) Tiredness Vitamin D deficiency disease Vitamin B12 deficiency Osteoarthritis, multiple sites H/O ventricular tachycardia 2020 Health care maintenance Anticoagulant long-term use (Acute) Atrial fibrillation (Acute) CAD (coronary artery disease) (Acute) Chronic kidney disease, stage II (mild) (Acute) Chronic systolic (congestive) heart failure (Acute) Colon polyps (Acute) Diverticulosis (Acute) Hyperlipidemia (Acute) Hypertension (Acute) ICD (implantable cardioverter-defibrillator) in place (Acute) Ischemic cardiomyopathy (Acute) Nodule of apex of right lung (Acute) Tubulovillous adenoma of colon (Acute) S/P CABG x 4 2013 @ [facility] in [place], [place] Medical History Fatigue IgM kappa monoclonal gammopathy Evaluated by Oncology/2023 not active no additional testing Chronic kidney disease Hyperglycemia Diverticulosis Chronic systolic (congestive) heart failure CAD (coronary artery disease) SOBOE (shortness of breath on exertion) denies Tinnitus MGUS (monoclonal gammopathy of unknown significance) will be seeing hematology soon Diabetes mellitus NIDDM Complex sleep apnea syndrome no longer using BIPAP Bronchitis hx, no current issues Productive cough resolved Malfunction of implantable defibrillator ventricular (ICD) lead repaired NSVT (nonsustained ventricular tachycardia) hx; f/u bharath paulino Hemorrhoids Osteoarthritis of left knee History of colon polyps Gout hx On anticoagulant therapy eliquis daily Hyperlipidemia ICD (implantable cardioverter-defibrillator) in place 05/2013--[facility] Myocardial Infarction 12/2012 Atrial fibrillation with RVR f/u bharath paulino Kidney disease hx HTN (hypertension) Heart disease Surgical History Status post implantation of automatic cardioverter/defibrillator (AICD) S/P CABG (coronary artery bypass graft) 2012, [facility], quintuple bypass History of colonoscopy History of tooth extraction History of cardiac cath 12/2012, [facility], having heart symptoms, no stents; f/u bharath roberts Family History Brother Family history of diabetes mellitus Myocardial infarction Sister Myocardial infarction Uncle Myocardial infarction Other No family history of adverse response to anesthesia Denies family history of Colon cancer Ovarian cancer Prostate cancer Breast cancer Social History Smoking Status: Never smoker Tobacco Type: Pipe and Cigars Age Started Using Tobacco: 22; Age Quit Using Tobacco: 71; Cigarettes Per Day: Patient reports smoking off and on those years and maybe 2- 3 cigars a day; Second Hand Exposure: No; Do You Dip or Chew Tobacco: No; Hx Alcohol Use: No Hx Substance Use: No Preferred Language: Telugu Communication Ability: Effective Visual Impairment: No Limitations Hearing Ability: Normal 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 Beliefs That Will Affect Care: None marital status: Current Living Situation: Spouse current occupational status: retired Feels Safe at Home: Yes Safety Concerns: Feels Safe At This Time Childhood Exposure to Second-Hand Smoke: Yes Dental Care, Regularly: Yes Physical Activity Frequency: Daily Seatbelt Use: always Sunscreen Use: Yes Assistive Devices: None Review of Systems A total of 10 systems reviewed and were otherwise negative Physical Exam Vital Signs Vital Signs - 24 hr 11/19/24 21:59 11/19/24 22:00 11/19/24 22:10 Temperature 36.5 C Temperature Source Oral Pulse Rate 76 Pulse Rate [Right Finger] Pulse Rate from SpO2 Sensor Respiratory Rate 20 Respiratory Effort / Characteristics Non-Labored Spontaneous Respiratory Depth Respiratory Pattern Blood Pressure 116/78 Blood Pressure [Right Arm] Blood Pressure Mean 90 Blood Pressure Mean [Right Arm] Blood Pressure Position Sitting Pulse Oximetry 98 96 Oxygen Delivery Method Room Air Room Air Room Air Sepsis Recent Fever Within 48 Hours No Sepsis New/Unexplained Change in Mental Status No Sepsis Action Taken by Nursing No Action Required 11/19/24 22:16 11/19/24 22:16 11/19/24 22:17 Temperature Temperature Source Pulse Rate 62 Pulse Rate [Right Finger] Pulse Rate from SpO2 Sensor Respiratory Rate Respiratory Effort / Characteristics Respiratory Depth Respiratory Pattern Blood Pressure 123/66 123/66 Blood Pressure [Right Arm] Blood Pressure Mean 76 76 Blood Pressure Mean [Right Arm] Blood Pressure Position Pulse Oximetry Oxygen Delivery Method Sepsis Recent Fever Within 48 Hours Sepsis New/Unexplained Change in Mental Status Sepsis Action Taken by Nursing 11/19/24 22:21 11/19/24 23:00 11/20/24 00:00 Temperature 36.5 C Temperature Source Oral Pulse Rate 62 Pulse Rate [Right Finger] 51 L Pulse Rate from SpO2 Sensor 63 Respiratory Rate 14 16 14 Respiratory Effort / Characteristics Non-Labored Spontaneous Non-Labored Spontaneous Respiratory Depth Normal Respiratory Pattern Regular Blood Pressure Blood Pressure [Right Arm] 120/68 Blood Pressure Mean Blood Pressure Mean [Right Arm] 85 Blood Pressure Position Pulse Oximetry 97 98 97 Oxygen Delivery Method Room Air Room Air Sepsis Recent Fever Within 48 Hours Sepsis New/Unexplained Change in Mental Status Sepsis Action Taken by Nursing VITALS: Vitals are noted on the nurse's note and reviewed by myself. Vital signs stable. GENERAL: Elderly white male in no acute distress HEAD: Normocephalic atraumatic. NECK: Supple without nuchal rigidity. No lymphadenopathy. No thyromegaly. Cervical spine is nontender. HEART: Irregularly irregular LUNGS: Clear to auscultation bilaterally without wheezes, rales or rhonchi. No retractions or accessory muscle use. ABDOMEN: Positive normal bowel sounds x 4. Soft, nontender, without masses or organomegaly. No guarding or rebound tenderness. MUSCULOSKELETAL: No muscle atrophy, erythema, or edema noted. Full range of motion in all extremities. No tenderness to palpation. NEURO: Patient was alert and oriented to person place and time. CN II through XII grossly intact. Course Administered Medications Lactated Ringer's (Lr) 1,000 mls @ 80 mls/hr IV .[id number] OTIS Stop: 11/20/24 11:55 Last Admin: 11/20/24 03:11 Dose: 80 mls/hr Documented By: DLR Discontinued Medications Sodium Chloride (Nss) 500 mls @ 999 mls/hr IV .Q31M ONE Stop: 11/19/24 23:51 Last Infusion: 11/20/24 01:19 Dose: Infused Documented By: Admin: 11/20/24 00:40 Dose: 999 mls/hr Documented By: OSCAR Medical Decision Making Differential Diagnosis Differential diagnosis includes, but is not limited to: Myocardial infarction, dysrhythmia, pericarditis, pneumothorax, aortic aneurysm/dissection, DVT/PE, anxiety, GERD, PUD, electrolyte imbalance, thyroid disorder, pneumonia, bronchitis, pancreatitis, and others Laboratory Data 11/20/24 02:53 11/20/24 02:53 Lab Results 11/19/24 11/19/24 Range/Units 21:12 22:27 WBC 8.53 (4.8-10.8) K/ul RBC 5.33 (4.70-6.10) M/uL Hgb 16.8 (14.0-18.0) g/dl Hct 49.9 (42.0-52.0) % MCV 93.6 (80.0-100.0) fL MCH 31.5 (25.0-34.0) pg MCHC 33.7 (32.0-36.0) g/dL RDW Std Deviation 49.1 H (36.4-46.3) fL RDW Coeff of Eldon 14.3 (11.5-14.5) % Plt Count 171 (130-400) K/uL MPV 10.4 (9.4-12.4) fL Immature Gran % (Auto) 0.5 % Neut % (Auto) 54.9 % Lymph % (Auto) 30.7 % [place] % (Auto) 10.1 % Eos % (Auto) 3.0 % Baso % (Auto) 0.8 % Neut # (Auto) 4.68 (1.40-6.50) K/uL Lymph # (Auto) 2.62 (1.20-3.40) K/uL Charlotte # (Auto) 0.86 H (0.11-0.59) K/uL Eos # (Auto) 0.26 (0.00-0.50) K/uL Baso # (Auto) 0.07 (0.00-0.20) K/uL Immature Gran # (Auto) 0.04 (0.01-0.20) K/uL PT 11.1 (9.0-12.0) Seconds INR 1.0 (0.9-1.1) APTT 30 (21-31) Seconds PTT Ratio 1.1 VBG pH 7.37 (7.36-7.41) VBG pCO2 38 (38-50) mmHg VBG pO2 53 mmHg VBG HCO3 22 mmol/L VBG O2 Saturation 88.8 % VBG Base Excess -2.9 mEq/L Sodium 136 (136-145) mmol/L Potassium 4.6 (3.5-5.1) mmol/L Chloride 104 (98-107) mmol/L Carbon Dioxide 27 (21-32) mmol/L Anion Gap 5 (3-11) BUN 34 H (6-23) mg/dl Creatinine 2.00 H (0.6-1.4) mg/dl Est Cr Clr Drug Dosing 36.4 ml/min eGFR 33.53 BUN/Creatinine Ratio 17.0 (10-20) Glucose 130 H (70-99(Fasting)) mg/dl Calcium 10.2 (8.6-10.3) mg/dl Magnesium 2.4 (1.7-2.4) mg/dl Total Bilirubin 0.4 (0.2-1.0) mg/dl AST 13 (13-39) U/L ALT 12 (7-52) U/L Alkaline Phosphatase 60 (34-104) U/L Troponin I High Sens 12.7 (0-20) pg/ml B-Natriuretic Peptide 53 (0-100) pg/ml Total Protein 7.4 (6.0-8.3) gm/dl Albumin 4.2 (3.4-5.0) gm/dl Globulin 3.2 (2.5-4.0) gm/dl Albumin/Globulin Ratio 1.3 (0.9-2) Lipase 28 (11-82) U/L Digoxin 2.2 H (0.8-2.0) ng/ml Anaplasma Smear Cancelled Babesia Smear Cancelled Imaging Data Radiologist's Impression: Chest X-Ray 11/19/24 22:10 Exam(s): XR CXR 1 VIEW EXAM: XR Chest, 1 View CLINICAL HISTORY: Reason for exam: Chest pain, nonspecific. TECHNIQUE: Frontal view of the chest. COMPARISON: Prior chest x-ray from July 20, 2023. FINDINGS: There is an AICD in the left chest wall distal leads in the right atrium right ventricle. Lungs: Right upper lobe granuloma. No consolidation. Pleural space: Unremarkable. No pneumothorax. Heart: Status post SMITH CABG. No cardiomegaly. Mediastinum: Unremarkable. Normal mediastinal contour. Bones/joints: Status post median sternotomy with sternal wires intact. No acute fracture. IMPRESSION: No evidence of acute cardiopulmonary process. Electronically signed by: Ada Mcclelland MD 11/20/24 02:24 AM ECG Data Attestation: I personally reviewed and interpreted this ECG as follows: Indication: + weakness Additional Comments: Atrial fibrillation with slow ventricular response at 58 bpm Occasional ventricular paced complexes noted No significant change when compared to EKG 26 March 2023 MDM Narrative Physical exam and history were performed. Nursing notes, EMR, and Medication List were personally reviewed. No social concerns were identified as barriers to patients care. History was provided by the Patient and who is at bedside. Patient appears to have weakness, fatigue, and feeling that he cannot take a deep breath. He is with some shortness of breath at rest. He additionally has significant past medical history that is quite concerning. I discussed options of care with patient and family. IV access was established and labs were obtained. An order was placed for continuous cardiac monitoring. The monitor shows a rate of 76 with normal sinus rhythm. Patient's blood work is as above and was reviewed. He does not have significant elevated white blood cell count, gross anemia, bandemia, or significant electrolyte imbalance. Transaminases not diagnostic. Creatinine is elevated at 2.0, which is higher than his baseline. BNP is normal. Urine without distinct evidence of infection. Troponin x 1 is negative. Escalation of care was considered, and felt to be necessary. Patient has several vague symptoms with an elevated creatinine. The etiology of symptoms is not distinct at this time. Patient was given a 500 mL saline fluid bolus. Case was discussed with my attending and the on-call hospitalist team who agreed to evaluate the patient here in the ER. Please see the hospitalist team dictation for further patient course, plan, and disposition. The chart was completed utilizing [employer] Speech Voice Recognition Software. Grammatical errors, random word insertions, pronoun errors, and incomplete sentences are an occasional consequence of this system due to software limitations, ambient noise, and hardware issues. Any formal questions or concerns about the content, text, or information contained within the body of this dictation should be directly addressed to the provider for clarification. Impression & Plan Generalized weakness, Atrial fibrillation, Anticoagulant long-term use, FILIPPO (acute kidney injury) Discharge Plan Visit Data Chief Complaint: Shortness of Breath/Dyspnea Stated Complaint: SOB - ARM PAIN ED Provider: Ace Randolph ED Midlevel Provider: Roel Johnston Discharge Problem: Generalized weakness, Atrial fibrillation, Anticoagulant long-term use, FILIPPO (acute kidney injury) Patient Disposition: Admitted As Inpatient Condition: Fair Discharge Instructions Interventions: ED Discharge Assessment Last Done: 11/20/24 02:10
--- NOTE | 2024-11-19 22:43 | Emergency Department Note ---
ED Visit Note I was consulted by the Advanced Practice Provider, Roel Johnston PA-C. I personally made/approved the management plan and take responsibility for the patient management. I performed a substantive portion of the visit. This includes the aspects of: -History/Physical/Personally seeing the patient -MDM .
[2024-11-19 22:44] LABS: Alanine Aminotransferase 12.0 U/L (7-52); Albumin Globulin Ratio 1.3 (0.9-2); Alkaline Phosphatase 60.0 U/L (34-104); Anion Gap 5.0 (3-11); Bilirubin,Total 0.4 mg/dl (0.2-1.0); Blood Urea Nitrogen 34.0 mg/dl (6-23); Calcium 10.2 mg/dl (8.6-10.3); Carbon Dioxide 27.0 mmol/L (21-32); Chloride 104.0 mmol/L (98-107); Creatinine Clr Calc Pharmacy 36.4 ml/min; Globulin 3.2 gm/dl (2.5-4.0); Glucose 130.0 mg/dl (70-99(Fasting)); Lipase 28.0 U/L (11-82); Magnesium 2.4 mg/dl (1.7-2.4); Potassium 4.6 mmol/L (3.5-5.1); Sodium 136.0 mmol/L (136-145); Total Protein 7.4 gm/dl (6.0-8.3)
[2024-11-19 22:47] LABS: Base Excess VBG -2.9 mEq/L; HCO3 VBG 22 mmol/L; Oxygen Saturation VBG 88.8 %; PCO2 VBG 38 mmHg (38-50); PO2 VBG 53 mmHg; pH VBG 7.37 (7.36-7.41)
[2024-11-19 23:32] LABS: INR 1.0 (0.9-1.1); Partial Thromboplastin Time 30 Seconds (21-31); Prothrombin Time 11.1 Seconds (9.0-12.0)
--- NOTE | 2024-11-19 23:51 | History & Physical Report ---
Date of Service November 19, 2024 Assessment & Plan (1) Acute kidney injury: (2) Fatigue: (3) Type 2 diabetes mellitus: Plan 79-year-old male PMHx CAD s/p CABG (2008) and pacemaker (2012), HFrEF, HLP, CKD, abnormal chest imaging (2017), T2DM, OA, tinnitus, and ongoing fatigue who pres ents for shortness of breath and ongoing fatigue worsening day of arrival. ED evaluation reveals CBC without leukocytosis, stable H&H; PT/INR WNL; VBG's WNL; CMP creatinine 2.0, BUN 34, glucose 130; troponin 12.7; BNP 53; digoxin level 2.2; CXR pending official read, likely have consolidation or pulmonary edema; EKG A-fib with SVR and ventricular paced complexes at 58 bpm.; Provided with 500 mL NSS in ED. #FILIPPO With history of CKD. No LUTS. Received 500 mL NSS in ED. - Cr 2.00, BUN 34 - BMP am - UA pending - Post void bladder scan pending; bladder scan prn - Hold nephrotoxic agents - furosemide, spironolactone -- Digoxin continued, however, if worsening Cr then consider holding but discuss with cardiology - Gentle IVF LR 80 mL/hr x 750 mL #Fatigue Ongoing x 1 year, with associated weight loss (30 lbs over last year); No F/C, no night sweats. H/o abnormal chest imaging (Feb 2018, 9mm RUL), and h/o smoking, orthopnea at times but no LE edema or weight gain. Unclear etiology, may be exacerbated at present 2/2 FILIPPO. - CBC without leukocytosis, stable H/H; CMP without gross electrolyte abnormalities; BNP 53; trop 12.7; digoxin 2.2 (in presence of FILIPPO/CKD) - Echo 09/2024 EF 35 to 40%, global hypokinesis of LV, LV moderately dilated, LA severely dilated, mild AR, mild MR - (+) Lyme screen 04/2024 - pending tick panel - Vitamin B12 576 (04/2024), takes supplement -- pending B12 + D levels #T2DM H/o DMT2; At home regimen Jardiance. - Most recent A1C 10/2024 @ 6.5%; Glucose on arrival 130 - Continued home medications (Jardiance) - SSI with target BSG range 110-140mg/dL, CF 25, carb ratio deferred - BSG ACHS - Adjust regimen as needed #CAD s/p pacemaker/HFrEF/Cardiomyopathy/HLP- BNP 53; EKG Afib with SVR on admission; Echo w/ EF 35-40% (09/2024); ASA, diltiazem, furosemide (prn), spironolactone, pravastatin, Jardiance, Entresto - HELD furosemide + spironolact one at admission (not taking furosemide often), continued all other medication pending repeat labs for 0444 #Afib- EKG at admission Afib with SVR; Dig level 2.2 at admission; Eliquis, diltiazem, digoxin - continue #EMILIO- BiPAP at home, does not use Dispo: Admit, med/tele VTE Prophylaxis: On Eliquis This document was dictated utilizing fastDove. Please excuse any grammatical errors that may be secondary to use of this software. Admission and Anticipated Discharge Date Admission Date: 11/19/2024 History of Present Illness Chief Complaint: SOB, fatigue Primary Care Provider: Nolan Mcmillan MD 79-year-old male PMHx CAD s/p CABG (2009) and pacemaker (2013), HFrEF, HLP, CKD, abnormal chest imaging (2018), T2DM, OA, tinnitus, and ongoing fatigue who presents for shortness of breath and ongoing fatigue worsening day of arrival. Patient states that he "just cannot breathe, cannot take a full deep breath" and that this has been occurring for "a while" but worsened the night of arrival. He also states that he started to have bilateral arm pain, more noticeable in the R than L and ongoing. He states that it has been as a slow, consistent discomfort that goes down to his wrist, rating it 5 out of 10 on the pain scale. He denies any chest pain, but states that he may have had some chest pressure at one point. He states he had a history of heart attacks in the past, 13 years ago, and did not have any chest pain with this. He does admit to having dizziness when he goes from a sitting to standing position, but that he does not have any dizziness whenever he is standing after a few moments. Describes it as feeling off balance. No falls, no syncope. When asked if he is weak, he states "absolutely." States that he has been for approximately 1 year, which started in August 2023. He states that is not related to activity, but he used to be able to run multiple miles a day and walk a few thousand steps but has been unable to now. He has lost approximately 30 pounds over the past year. Also admits to some nausea for the past year, states that he did experience this the day of arrival. Does have some numbness and tingling in his bilateral feet, does also have a history of T2DM. Denies palpitations, cough, fever/chills, URI symptoms, abdominal pain, V/D/C, LUTS, lightheadedness, syncope, or falls. Has not been around any sick contacts. Does not recall any tick bites. States that he did take his evening medications. Has furosemide as needed which she has not taken for approximately 1 year his states. Does not use his BiPAP at night. ED evaluation reveals CBC without leukocytosis, stable H&H; PT/INR WNL; VBG's WNL; CMP creatinine 2.0, BUN 34, glucose 130; troponin 12.7; BNP 53; digoxin level 2.2; CXR pending official read, likely have consolidation or pulmonary edema; EKG A-fib with SVR and ventricular paced complexes at 58 bpm.; Provided with 500 mL NSS in ED. Please see Dr. Larson's attestation for adjustments/additions to treatment plan. Allergies Allergy/AdvReac Type Severity Reaction Status Date / Time oyster extract Allergy Severe raw oyster Verified 11/20/24 02:45 toxic reaction CHRIS Inhibitors AdvReac Intermediate CAUSED Verified 11/12/24 09:06 ISSUES WITH KIDNEY VALUES Home Medications Medication Instructions Recorded Confirmed Type aspirin 81 mg tablet,delayed 81 mg PO QAM 10/18/18 11/20/24 History release cholecalciferol (vitamin D3) 25 25 mcg PO DAILY 03/26/23 11/20/24 History mcg (1,000 unit) capsule (Vitamin D3) cyanocobalamin (vitamin B-12) 1,000 mcg sublingual UD 03/26/23 11/20/24 History 1,000 mcg sublingual tablet furosemide 20 mg tablet 20 mg PO Q OTHER DAY PRN weight 07/26/23 11/20/24 Rx gain, SOB, edema. #45 tabs BiPap Machine #1 ea 09/21/23 11/12/24 Rx BiPap Supplies #1 ea 09/21/23 11/12/24 Rx diltiazem HCl 180 mg 180 mg PO QAM #90 caps 01/30/24 11/20/24 Rx capsule,extended release 24 hr pravastatin 40 mg tablet 40 mg PO HS #90 tabs 05/14/24 11/20/24 Rx digoxin 250 mcg (0.25 mg) tablet 250 mcg PO DAILY #90 tabs 07/28/24 11/20/24 Rx carvedilol 25 mg tablet 25 mg PO BID #180 tabs 08/07/24 11/20/24 Rx apixaban 5 mg tablet 5 mg PO BID #180 tabs 09/12/24 11/20/24 Rx sacubitril 97 mg-valsartan 103 mg 1 tab PO BID #180 tabs 09/17/24 11/20/24 Rx tablet (Entresto) spironolactone 25 mg tablet 12.5 mg (1/2 x 25 mg) PO DAILY #45 11/06/24 11/20/24 Rx tabs empagliflozin 25 mg tablet 25 mg PO QAM #90 tabs 11/08/24 11/20/24 Rx Past Med/Surg History Problem List Type 2 diabetes mellitus Acute kidney injury Cardiomyopathy Peripheral neuropathy Diabetes mellitus Complex sleep apnea syndrome Urge to take deep breath Hypersomnolence Gallbladder disease Tinnitus SOBOE (shortness of breath on exertion) Tiredness Vitamin D deficiency disease Vitamin B12 deficiency Osteoarthritis, multiple sites H/O ventricular tachycardia 2020 Health care maintenance Anticoagulant long-term use Atrial fibrillation (Acute) CAD (coronary artery disease) (Acute) Chronic kidney disease, stage II (mild) (Acute) Chronic systolic (congestive) heart failure (Acute) Colon polyps (Acute) Diverticulosis (Acute) Hyperlipidemia (Acute) Hypertension (Acute) ICD (implantable cardioverter-defibrillator) in place (Acute) Ischemic cardiomyopathy (Acute) Nodule of apex of right lung (Acute) Tubulovillous adenoma of colon (Acute) S/P CABG x 4 2013 @ [facility] in [place], [place] Medical History Fatigue IgM kappa monoclonal gammopathy Evaluated by Oncology/2023 not active no additional testing Chronic kidney disease Hyperglycemia Diverticulosis Chronic systolic (congestive) heart failure CAD (coronary artery disease) SOBOE (shortness of breath on exertion) denies Tinnitus MGUS (monoclonal gammopathy of unknown significance) will be seeing hematology soon Diabetes mellitus NIDDM Complex sleep apnea syndrome no longer using BIPAP Bronchitis hx, no current issues Productive cough resolved Malfunction of implantable defibrillator ventricular (ICD) lead repaired NSVT (nonsustained ventricular tachycardia) hx; f/u bharath paulino Hemorrhoids Osteoarthritis of left knee History of colon polyps Gout hx On anticoagulant therapy eliquis daily Hyperlipidemia ICD (implantable cardioverter-defibrillator) in place 05/2013--[facility] Myocardial Infarction 12/2012 Atrial fibrillation with RVR f/u bharath paulino Kidney disease hx HTN (hypertension) Heart disease Surgical History Status post implantation of automatic cardioverter/defibrillator (AICD) S/P CABG (coronary artery bypass graft) 2012, [facility], quintuple bypass History of colonoscopy History of tooth extraction History of cardiac cath 12/2012, [facility], having heart symptoms, no stents; f/u bharath roberts Family History Brother Family history of diabetes mellitus Myocardial infarction Sister Myocardial infarction Uncle Myocardial infarction Other No family history of adverse response to anesthesia Denies family history of Colon cancer Ovarian cancer Prostate cancer Breast cancer Social History Smoking Status: Never smoker Tobacco Type: Pipe and Cigars Age Started Using Tobacco: 22; Age Quit Using Tobacco: 71; Cigarettes Per Day: Patient reports smoking off and on those years and maybe 2- 3 cigars a day; Second Hand Exposure: No; Do You Dip or Chew Tobacco: No; Hx Alcohol Use: No Hx Substance Use: No Preferred Language: Malian Communication Ability: Effective Visual Impairment: No Limitations Hearing Ability: Normal Tax Adjuster Required: No Beliefs That Will Affect Care: None marital status: Current Living Situation: Spouse current occupational status: retired Feels Safe at Home: Yes Safety Concerns: Feels Safe At This Time Childhood Exposure to Second-Hand Smoke: Yes Dental Care, Regularly: Yes Physical Activity Frequency: Daily Seatbelt Use: always Sunscreen Use: Yes Assistive Devices: None Review of Systems Review of Systems: All systems reviewed & are unremarkable except as noted in Subjective Physical Exam Physical Exam: General: No acute distress Skin: Warm and dry Head: Normocephalic, atraumatic Eyes: PERRL, conjunctivae clear, sclera non-icteric ENT: External ear and ear canal without swelling; nose atraumatic; fair dentition, tongue normal appearance, pharynx normal Neck: Supple, no LAD Cardio: Bradycardic, irregularly irregular rhythm, no M/G/R, S1 and S2 normal Resp: No respiratory distress, Lungs CTA in all lobes bilaterally, no wheezes, rales, or rhonchi Abdomen: Soft, symmetric, nontender; No masses or hepatosplenomegaly; Bowel sounds normoactive MSK: No deformities; pulses palpable and equal; no edema. Neuro: Awake, alert; Sensation intact bilaterally; CN grossly intact Psych: Appropriate mood and affect; good judgement and insight. present in room at time of visit. Results & Data Results & Data Vital Signs (Past 12 Hours) Vital Signs Temp Pulse Resp BP Pulse Ox O2 Del Method 11/19/24 22:21 62 14 97 11/19/24 22:17 62 11/19/24 22:16 123/66 11/19/24 22:16 123/66 11/19/24 22:10 96 Room Air 11/19/24 22:00 36.5 C 76 20 116/78 98 Room Air 11/19/24 21:59 Room Air Laboratory Results 11/19/24 11/19/24 22:27 21:12 WBC 8.53 RBC 5.33 Hgb 16.8 Hct 49.9 MCV 93.6 MCH 31.5 MCHC 33.7 RDW Std Deviation 49.1 H RDW Coeff of [place] 14.3 Plt Count 171 MPV 10.4 Immature Gran % (Auto) 0.5 Neut % (Auto) 54.9 Lymph % (Auto) 30.7 [place] % (Auto) 10.1 Eos % (Auto) 3.0 Baso % (Auto) 0.8 Neut # (Auto) 4.68 Lymph # (Auto) 2.62 [place] # (Auto) 0.86 H Eos # (Auto) 0.26 Baso # (Auto) 0.07 Immature Gran # (Auto) 0.04 PT 11.1 INR 1.0 APTT 30 PTT Ratio 1.1 VBG pH 7.37 VBG pCO2 38 VBG pO2 53 VBG HCO3 22 VBG O2 Saturation 88.8 VBG Base Excess -2.9 Sodium 136 Potassium 4.6 Chloride 104 Carbon Dioxide 27 Anion Gap 5 BUN 34 H Creatinine 2.00 H Est Cr Clr Drug Dosing 36.4 eGFR 33.53 BUN/Creatinine Ratio 17.0 Glucose 130 H Calcium 10.2 Magnesium 2.4 Total Bilirubin 0.4 AST 13 ALT 12 Alkaline Phosphatase 60 Troponin I High Sens 12.7 B-Natriuretic Peptide 53 Total Protein 7.4 Albumin 4.2 Globulin 3.2 Albumin/Globulin Ratio 1.3 Lipase 28 Digoxin 2.2 H Medications Administered 500 mL NSS ECG Additional Comments: A-fib with SVR and occasional ventricular paced complexes 58 bpm, QRS 116, QT/QTc 378/371, PRT */58/-21 Code Status & VTE Plan Code Status Full Supervising Physician Co-Signing Physician Notes Patient seen and examined, chart reviewed. I agree with the assessment and plan per NISH Smith as above. In brief, patient is a 79yo male with multiple medical comorbidities, CAD, HF, HLP, CKD, DM presenting with fatigue and SOB. Patient with elevated BUN=34 and Cr=2. On exam he is resting comfortably, NAD Skin - no rash HEENT - MMM, Neck supple Heart - +S1/S2, irregularly irregular Lungs - CTA anteriorly Abd - soft, NT/ND Labs and images reviewed Assessment/Plan #FILIPPO - gentle IVF. Hold nephrotoxic agents -Repeat chemistry Remainder as above PG Care Time/CCT Total # of Minutes Spent Total Time Spent with Patient: Total time spent is greater than 50% in coordination of care (as documented) at patient's floor/unit and/or counseling patient: Coding Level of Care Code 47088 INT INP/OBS CARE 3/75MIN Diagnoses Acute kidney injury N17.9 Fatigue R53.83 Type 2 diabetes mellitus E11.9
[2024-11-20] MEDS: SODIUM CHLORIDE 0.9% 500 ML IV ONE (00:40)
--- NOTE | 2024-11-20 02:25 | XRay Report ---
Exam(s): XR CXR 1 VIEW EXAM: XR Chest, 1 View CLINICAL HISTORY: Reason for exam: Chest pain, nonspecific. TECHNIQUE: Frontal view of the chest. COMPARISON: Prior chest x-ray from July 20, 2023. FINDINGS: There is an AICD in the left chest wall distal leads in the right atrium right ventricle. Lungs: Right upper lobe granuloma. No consolidation. Pleural space: Unremarkable. No pneumothorax. Heart: Status post SMITH CABG. No cardiomegaly. Mediastinum: Unremarkable. Normal mediastinal contour. Bones/joints: Status post median sternotomy with sternal wires intact. No acute fracture. IMPRESSION: No evidence of acute cardiopulmonary process. Electronically signed by: Ada Mcclelland MD 11/20/24 02:24 AM
[2024-11-20] MEDS ORDERED: CARBOHYDRATES FOR HYPOGLYCEMIA PO PRN (02:34)
[2024-11-20] MEDS ORDERED: GLUCOSE 10 TAB/TUBE PO PRN (02:34)
[2024-11-20] MEDS ORDERED: GLUCAGON FOR INJ 1 MG VIAL SQ PRN (02:34)
[2024-11-20] MEDS ORDERED: POLYETHYLENE (MIRALAX) 17 GM PACK PO PRN (02:34)
[2024-11-20] MEDS ORDERED: ONDANSETRON INJ 2 MG/ML 2 ML VIAL IV PRN (02:34)
[2024-11-20] MEDS ORDERED: ACETAMINOPHEN 325 MG TAB PO PRN (02:34)
[2024-11-20] MEDS ORDERED: DEXTROSE 50% 50 ML SYRINGE IV PRN (02:34)
[2024-11-20] MEDS ORDERED: GLUCOSE 40% GEL 15 GM TUBE PO PRN (02:34)
[2024-11-20] MEDS ORDERED: MELATONIN 3 MG TAB PO PRN (02:34)
[2024-11-20 02:37] LABS: Appearance Urine Clear (Clear); Glucose Urine UA 3+ (Negative)
[2024-11-20] MEDS: LACTATED RINGER'S 1,000 ML IV SCH (03:11)
[2024-11-20 03:34] LABS: Hematocrit (blood only) 46.1 % (42.0-52.0); Hemoglobin 15.4 g/dl (14.0-18.0); Mean Corpuscular Hemoglobin 31.0 pg (25.0-34.0); Mean Corpuscular Volume 92.9 fL (80.0-100.0); Platelet Count 147 K/uL (130-400); RDW Standard Deviation 47.9 fL (36.4-46.3); Red Blood Count 4.96 M/uL (4.70-6.10); White Blood Count 7.38 K/ul (4.8-10.8)
[2024-11-20 03:49] LABS: Anion Gap 5.0 (3-11); Blood Urea Nitrogen 31.0 mg/dl (6-23); Calcium 9.5 mg/dl (8.6-10.3); Carbon Dioxide 25.0 mmol/L (21-32); Chloride 106.0 mmol/L (98-107); Creatinine Clr Calc Pharmacy 44.1 ml/min; Glucose 132.0 mg/dl (70-99(Fasting)); Potassium 4.9 mmol/L (3.5-5.1); Sodium 136.0 mmol/L (136-145)
[2024-11-20] MEDS: INSULIN ASPART PER UNIT CHARGE SC SCH (08:32)
[2024-11-20] MEDS: CHOLECALCIFEROL 125 MCG (5,000 UNITS) TAB PO SCH (09:15)
[2024-11-20] MEDS: ASPIRIN 81 MG ECTAB PO SCH (09:16)
[2024-11-20] MEDS: APIXABAN 5 MG TABLET PO SCH (09:17)
[2024-11-20] MEDS: EMPAGLIFLOZIN 25 MG TAB PO SCH (09:18)
[2024-11-20] MEDS: VALSARTAN/SACUBITRIL 103/97MG TAB PO SCH (09:18)
--- NOTE | 2024-11-20 12:39 | Hospitalist Progress Note ---
Date of Service November 20, 2024 Assessment & Plan (1) Acute kidney injury: (2) Fatigue: (3) Type 2 diabetes mellitus: Plan 79-year-old male PMHx CAD s/p CABG (2008) and pacemaker (2012), HFrEF, HLP, CKD, abnormal chest imaging (2018), T2DM, OA, tinnitus, and ongoing fatigue who pres ents for shortness of breath and ongoing fatigue worsening day of arrival. ED evaluation reveals CBC without leukocytosis, stable H&H; PT/INR WNL; VBG's WNL; CMP creatinine 2.0, BUN 34, glucose 130; troponin 12.7; BNP 53; digoxin level 2.2; CXR pending official read, likely have consolidation or pulmonary edema; EKG A-fib with SVR and ventricular paced complexes at 58 bpm.; Provided with 500 mL NSS in ED. #FILIPPO With history of CKD. Creatinine of 2 on admission w/ improvement to 1.65 UA negative bladder scan prn Hold Furosemide + aldactone - digoxin is continued for now but if creatinine worsens, discuss w/ cardiology s/p IVF #Fatigue ongoing x 1 year w/ associated weight loss, unclear etiology but may be secondary to cardiac disease vs noncompliance w/ BiPAP in setting of EMILIO, rule out underlying thyroid d/o CBC/BMP stable. Echo 09/2024: EF 35-40%, global hypokinesis of LV, LV moderately dilated, LA severely dilated, mild AR, mild MR hx Lyme + in 04/2024, follow up tick panel negative Vitamin D low - started on supplementation B12 WNL Check AM TSH level (prev WNL 04/2024) #T2DM H/o DMT2; At home regimen Jardiance. Most recent A1C 10/2024 @ 6.5% Continued home medications (Jardiance) SSI with target BSG range 110-140mg/dL, CF 25, carb ratio deferred BSG ACHS Adjust regimen as needed #CAD s/p pacemaker/HFrEF/Cardiomyopathy/HLP BNP 53 EKG Afib with SVR on admission; abnormal findings of bradycardia w/ pauses on tele cardiology consulted, appreciate recommendations Continue Diltiazem, pravastatin, jardiance & Entresto #Afib- EKG at admission Afib with SVR; Dig level 2.2 at admission; Eliquis, diltiazem, digoxin - continue #EMILIO BiPAP at home, does not use Possible fatigue may be contributing to not using CPAP overnight ? Dispo: Admit, med/tele VTE Prophylaxis: On Eliquis Updated at bedside 11/20 Admission and Anticipated Discharge Date Admission Date: November 20, 2024 Supervising Physician Co-Signing Physician Notes The patient was not seen by me. The chart was reviewed. Case discussed with SIMON Cummins. Agree with assessment and plan Subjective Javier was seen and examined this morning. He reports he is still feeling fatigue but reports his shortness of breath may have minimally improved. He denied any additional symptoms. Physical Exam Constitutional: WD/WN, vitals as above Eyes: PERRL, conjunctivae normal, anicteric sclerae Respiratory: normal respiratory effort Cardiovascular: no LE edema Skin: no rashes, warm and dry Neurologic: PERRL, EOMI, accommodation nl, no face palsy, no dysarthria Psychiatric: A+Ox3, euthymic affect Results & Data Results & Data Vital Signs (Past 12 Hours) Vital Signs Temp Pulse Pulse Resp BP BP Pulse Ox 11/20/24 08:00 11/20/24 07:58 36.4 C L 62 16 108/71 95 11/20/24 06:10 59 L 11/20/24 03:04 11/20/24 02:48 36.3 C L 59 L 16 122/75 96 11/20/24 02:30 73 11/20/24 02:10 11/20/24 01:30 54 L 25 H 94 11/20/24 01:00 53 L 21 116/71 95 O2 Del Method 11/20/24 08:00 Room Air 11/20/24 07:58 Room Air 11/20/24 06:10 11/20/24 03:04 Room Air 11/20/24 02:48 Room Air 11/20/24 02:30 11/20/24 02:10 Room Air 11/20/24 01:30 11/20/24 01:00 PG Care Time/CCT Total # of Minutes Spent Total Time Spent with Patient: Total time spent is greater than 50% in coordination of care (as documented) at patient's floor/unit and/or counseling patient: Coding Level of Care Code 96989 SUB INP/OBS CARE 2/35MIN Diagnoses Acute kidney injury N17.9 Fatigue R53.83 Type 2 diabetes mellitus E11.9
[2024-11-20] MEDS: DIGOXIN 0.25 MG TAB PO SCH (16:38)
--- NOTE | 2024-11-20 18:10 | Cardiology Consultation ---
Date of Consultation November 20, 2024 Assessment & Plan (1) ICD (implantable cardioverter-defibrillator) in place: (2) Ischemic cardiomyopathy: (3) CAD (coronary artery disease): (4) NSVT (nonsustained ventricular tachycardia): (5) Atrial fibrillation, permanent: (6) Anticoagulant long-term use: (7) Chronic kidney disease, stage II (mild): Plan 1. Single-chamber ICD: His ICD was interrogated today. The lead characteristics including pacing and sensing characteristics and high-voltage electrodes are stable. Battery longevity is acceptable. His stored data was interrogated and reviewed. He has been in continuous atrial fibrillation and has had episodes of nonsustained ventricular tachycardia which appear to be rapidly conducted atrial fibrillation but no shocks have been delivered since his last visit. It appears that his heart rate may have slowed somewhat recently. I did increase his pacing rate to help with bradycardia, that is not ideal since he has a wide paced complex but for the short-term it may not be too detrimental and we can tell if regularizing the rate and increasing the rate help with his symptoms. 2. Ischemic cardiomyopathy: He has an ischemic cardiomyopathy but his left ventricular function had gradually improved and he is on guideline directed medical therapy (carvedilol 25 mg twice daily, Jardiance, Entresto 97/103 twice daily and spironolactone 12.5 mg daily). We could potentially go up on his carvedilol to help control heart rate, but then he may end up pacing which would not ideal and I do not know that this would help him very much as far as his symptoms go. Based on his recent echo his left ventricular function has remained quite stable and may not explain his symptoms. 3. Coronary disease: Although he has coronary artery disease he does not have any anginal symptoms but should remain on aspirin. I do not get a sense that his fatigue is due to coronary artery disease as it seems to be continuous not related to exertion. We could consider a stress test which he has not had for a long time. We know he has coronary disease so that may be a little hard to interpret but is potentially helpful. At this point if device reprogramming does not help his symptoms we may want to perform a stress test and he tells me he could walk on a treadmill. 4. Nonsustained ventricular tachycardia: He has had no recent ventricular tachycardia, the episodes detected by the device appeared to be rapidly conducted atrial fibrillation. 5. Atrial fibrillation: He remains in atrial fibrillation which appears to be permanent, he should remain on anticoagulation. His heart rate has been a little fast and he is on carvedilol 25 mg twice a day as well as digoxin and diltiazem for rate control. I have not adjusted these medications in the past but perhaps now we should reduce them to see if allowing his heart rate to increase will help his symptoms. I am going to discontinue his digoxin and diltiazem at this point. 6. Anticoagulation: He is on Eliquis 5 mg twice a day, this is an appropriate dose for his age, weight and kidney function and I recommended he continue it. 7. Kidney disease: His creatinine had bumped slightly in the fall 2023, this had were happened as we adjusting his heart failure medications. I did decrease his spironolactone to 12.5 mg from 25 and that seemed to have helped. 8. Exertional difficulty: He is having difficulty with exertion and his pacemaker monitoring indicates a significant drop in activity level (as assessed by the rate responsive sensor in the device) over the last several months. There are numerous possibilities for this including left ventricular dysf unction, myocardial ischemia, or more likely in his case ambulatory dysfunction which seems to have something to do with his legs. History of Present Illness Reason for Consultation: Fatigue and tiredness Attending Physician: Liu Haro MD History of Present Illness This is a 78-year-old gentleman who has a history of coronary artery disease including an anterior myocardial infarction in the past as well as coronary bypass surgery in December of 2011. This all took place in [place] where he lived at the time. He also had left ventricular dysfunction, following surgery he had a repeat echocardiogram showing continued left ventricular dysfunction with ejection fraction of 30-35% and therefore he had an ICD implanted for primary prevention of sudden cardiac . This is a single-chamber unit and was implanted on May 11, 2012. He subsequently relocated to the [facility]. His device has alerts in place which produce audible tones in the presence of electrical abnormalities regard the device and the leads, he heard those tones and on evaluation February 12, 2015 he had some short interval counts (these are non physiologic electrical events generally representing outside interference or intrinsic lead problems). The device pocket was manipulated and isometrics were done however the abnormalities could not be reproduced. They were present only on the rate sensing lead suggesting that they were not an external source of interference. There was no immediate danger therefore it was elected to watch however the abnormality continued. We were able to eliminate the over sensing by reprogram the device to sense between the distal electrode and the RV coil, however this eliminates the possibility of pacing. Since he did not require it as a pacemaker and he had not received ICD shocks we had left him in this configuration. He underwent device replacement on August 28, 2020 with a new lead, his old lead remains in place and is capped. With an abandoned lead his device is not MRI compatible. He was identified as having atrial fibrillation in February 2017, the heart rate was fast and his medications were adjusted to control his heart rate (with addition of digoxin and diltiazem), he remained on carvedilol. He was a little bit fluid overloaded and was diuresed. He was anticoagulated with Eliquis, on which he remains. I did get an echocardiogram done on August 08, 2020 and shows his left ventricle to be moderately dilated with moderate left ventricular dysfunction and ejection fraction of 40 to 45. There were wall motion abnormalities. He did have moderate left atrial dilatation as well and a sclerotic aortic valve with mild regurgitation. He also had mild mitral regurgitation. An echocardiogram on May 23, 2023 shows moderate left ventricular dilatation with moderate global left ventricular dysfunction and ejection fraction of 35 to 40%. There is mild to moderate aortic insufficiency and mild mitral regurgitation. An echocardiogram done November 15, 2023 showed normal left ventricular size with mild concentric left ventricular hypertrophy and an ejection fraction of 40 to 45%. There is global hypokinesis. This is felt to be unchanged from May 2023. With his more recent symptoms of fatigue I did repeat the echocardiogram September 07, 2024 and he had mild to moderate left ventricular dysfunction with an ejection fraction of 35 to 40%, the left ventricle was moderately dilated and left atrium was severely dilated. His heart rate has tended to be somewhat slow, however in the office his pulse tended to be in the 50s 60s and 70s and it was not clear that this was symptomatic. Since he had only a single chamber device in place and pacing would cause ventricular dyssynchrony this was felt inadvisable with his left ventricular dysfunction. He has had a lot of difficulty with fatigue and tiredness this calendar year and I have evaluated several times in the office for this. We had considered the possibility that it was heart rate related, but his heart rate did not seem to be particularly slow and his symptoms are little unusual and that he often feels better with walking and he was very active until very recently. Now he presents to the emergency room with symptoms that are a little hard to interpret but he describes shortness of breath when he lays down, interfering with sleeping, as well as his fatigue. He has not been very active recently but he does not describe dyspnea on exertion and tells me that he could easily walk on a treadmill if we wanted to do a stress test. We have maintained AV simon blocking medications which include diltiazem HCl 180 mg daily as well as digoxin 0.25 mg daily and carvedilol 25 mg twice daily in addition to his other heart failure medications. Allergies Allergy/AdvReac Type Severity Reaction Status Date / Time oyster extract Allergy Severe raw oyster Verified 11/20/24 02:45 toxic reaction CHRIS Inhibitors AdvReac Intermediate CAUSED Verified 11/12/24 09:06 ISSUES WITH KIDNEY VALUES Home Medications Medication Instructions Recorded Confirmed Type aspirin 81 mg tablet,delayed 81 mg PO QAM 10/18/18 11/20/24 History release cholecalciferol (vitamin D3) 25 25 mcg PO DAILY 03/26/23 11/20/24 History mcg (1,000 unit) capsule (Vitamin D3) cyanocobalamin (vitamin B-12) 1,000 mcg sublingual UD 03/26/23 11/20/24 History 1,000 mcg sublingual tablet furosemide 20 mg tablet 20 mg PO Q OTHER DAY PRN weight 07/26/23 11/20/24 Rx gain, SOB, edema. #45 tabs BiPap Machine #1 ea 09/21/23 11/12/24 Rx BiPap Supplies #1 ea 09/21/23 11/12/24 Rx diltiazem HCl 180 mg 180 mg PO QAM #90 caps 01/30/24 11/20/24 Rx capsule,extended release 24 hr pravastatin 40 mg tablet 40 mg PO HS #90 tabs 05/14/24 11/20/24 Rx digoxin 250 mcg (0.25 mg) tablet 250 mcg PO DAILY #90 tabs 07/28/24 11/20/24 Rx carvedilol 25 mg tablet 25 mg PO BID #180 tabs 08/07/24 11/20/24 Rx apixaban 5 mg tablet 5 mg PO BID #180 tabs 09/12/24 11/20/24 Rx sacubitril 97 mg-valsartan 103 mg 1 tab PO BID #180 tabs 09/17/24 11/20/24 Rx tablet (Entresto) spironolactone 25 mg tablet 12.5 mg (1/2 x 25 mg) PO DAILY #45 11/06/24 11/20/24 Rx tabs empagliflozin 25 mg tablet 25 mg PO QAM #90 tabs 11/08/24 11/20/24 Rx Patient History Medical History Fatigue IgM kappa monoclonal gammopathy Evaluated by Oncology/2023 not active no additional testing Chronic kidney disease Hyperglycemia Diverticulosis Chronic systolic (congestive) heart failure CAD (coronary artery disease) SOBOE (shortness of breath on exertion) denies Tinnitus MGUS (monoclonal gammopathy of unknown significance) will be seeing hematology soon Diabetes mellitus NIDDM Complex sleep apnea syndrome no longer using BIPAP Bronchitis hx, no current issues Productive cough resolved Malfunction of implantable defibrillator ventricular (ICD) lead repaired NSVT (nonsustained ventricular tachycardia) hx; f/u bharath paulino Hemorrhoids Osteoarthritis of left knee History of colon polyps Gout hx On anticoagulant therapy eliquis daily Hyperlipidemia ICD (implantable cardioverter-defibrillator) in place 05/2013--[employer] Myocardial Infarction 12/2012 Atrial fibrillation with RVR f/u bharath paulino Kidney disease hx HTN (hypertension) Heart disease Surgical History Status post implantation of automatic cardioverter/defibrillator (AICD) S/P CABG (coronary artery bypass graft) 2012, [facility]. [facility], quintuple bypass History of colonoscopy History of tooth extraction History of cardiac cath 12/2012, [facility], having heart symptoms, no stents; f/u bharath roberts Family History Brother Family history of diabetes mellitus Myocardial infarction Sister Myocardial infarction Uncle Myocardial infarction Other No family history of adverse response to anesthesia Denies family history of Colon cancer Ovarian cancer Prostate cancer Breast cancer Social History Smoking Status: Never smoker Tobacco Type: Pipe and Cigars Age Started Using Tobacco: 22; Age Quit Using Tobacco: 71; Cigarettes Per Day: Patient reports smoking off and on those years and maybe 2- 3 cigars a day; Second Hand Exposure: No; Do You Dip or Chew Tobacco: No; Hx Alcohol Use: No Hx Substance Use: No Preferred Language: Argentine Communication Ability: Effective Visual Impairment: No Limitations Hearing Ability: Normal Prover Required: No Beliefs That Will Affect Care: None marital status: Current Living Situation: Spouse current occupational status: retired Feels Safe at Home: Yes Safety Concerns: Feels Safe At This Time Childhood Exposure to Second-Hand Smoke: Yes Dental Care, Regularly: Yes Physical Activity Frequency: Daily Seatbelt Use: always Sunscreen Use: Yes Assistive Devices: None Physical Exam Physical Exam: Constitutional: Alert, cooperative and in no distress. HEENT: Unremarkable Neck: No jugular venous distention, carotid pulses are normal and equal bilaterally without bruits. Pulmonary: Clear to auscultation bilaterally. Cardiac: Irregular rhythm with no murmur, gallop or rub. Abdomen: Soft, nontender with normal bowel sounds. Extremities: No edema. Neurologic: No focal findings. Skin: The device site is well-healed without erythema, swelling or tenderness. No rash, ecchymoses or petechiae. Results & Data Vital Signs (Past 12 Hours) Vital Signs Temp Pulse Pulse Resp BP Pulse Ox O2 Del Method 11/20/24 16:38 70 11/20/24 14:15 71 11/20/24 11:51 36.5 C 66 18 115/60 96 Room Air 11/20/24 08:00 Room Air 11/20/24 07:58 36.4 C L 62 16 108/71 95 Room Air Laboratory Results Cardiac Enzymes 11/19/24 Range/Units 21:12 AST 13 (13-39) U/L Troponin I High Sens 12.7 (0-20) pg/ml B-Natriuretic Peptide 53 (0-100) pg/ml Coagulation 11/19/24 Range/Units 21:12 PT 11.1 (9.0-12.0) Seconds APTT 30 (21-31) Seconds B-Natriuretic Peptide 53 (0-100) pg/ml CBC 11/19/24 11/20/24 Range/Units 21:12 02:53 WBC 8.53 7.38 (4.8-10.8) K/ul RBC 5.33 4.96 (4.70-6.10) M/uL Hgb 16.8 15.4 (14.0-18.0) g/dl Hct 49.9 46.1 (42.0-52.0) % Plt Count 171 147 (130-400) K/uL Neut # (Auto) 4.68 (1.40-6.50) K/uL Lymph # (Auto) 2.62 (1.20-3.40) K/uL Meigs # (Auto) 0.86 H (0.11-0.59) K/uL Eos # (Auto) 0.26 (0.00-0.50) K/uL Baso # (Auto) 0.07 (0.00-0.20) K/uL Comprehensive Metabolic Panel 11/19/24 11/20/24 Range/Units 21:12 02:53 Sodium 136 136 (136-145) mmol/L Potassium 4.6 4.9 (3.5-5.1) mmol/L Chloride 104 106 (98-107) mmol/L Carbon Dioxide 27 25 (21-32) mmol/L BUN 34 H 31 H (6-23) mg/dl Creatinine 2.00 H 1.65 H D (0.6-1.4) mg/dl Glucose 130 H 132 H (70-99(Fasting)) mg/dl Calcium 10.2 9.5 (8.6-10.3) mg/dl AST 13 (13-39) U/L ALT 12 (7-52) U/L Alkaline Phosphatase 60 (34-104) U/L Total Protein 7.4 (6.0-8.3) gm/dl Albumin 4.2 (3.4-5.0) gm/dl Intake and Output 11/20/24 11/20/24 11/20/24 06:59 14:59 22:59 Intake Total 600 / 600 705.333 / 705.333 Balance 600 / 600 705.333 / 705.333 Intake: IV 500 / 500 705.333 / 705.333 Lactated Ringer's 1,000 ml @ 80 705.333 / 705.333 mls/hr IV .[id number] OTIS Rx#: [id number] Sodium Chloride 0.9% 500 ml @ 500 / 500 999 mls/hr IV .Q31M ONE Rx#: [id number] Oral 100 / 100 Other: # Unmeasured Voids 1 # Bowel Movement Diapers 1 Weight 96.8 kg Weight Measurement Method Built in [facility] PG Care Time/CCT Total # of Minutes Spent Total Time Spent with Patient: Total time spent is greater than 50% in coordination of care (as documented) at patient's floor/unit and/or counseling patient: Coding Level of Care Code None Diagnoses ICD (implantable cardioverter-defibrillator) in place Z95.810 Ischemic cardiomyopathy I25.5 Coronary artery disease involving holy cross coronary artery of holy cross heart without angina pectoris I25.10 Coronary Disease-Associated Artery/Lesion type: holy cross artery [place] vs. transplanted heart: holy cross heart Associated angina: without angina NSVT (nonsustained ventricular tachycardia) I47.2 Atrial fibrillation, permanent I48.21 Anticoagulant long-term use Z79.01 Chronic kidney disease, stage II (mild) N18.2 (3) CAD (coronary artery disease) Coronary Disease-Associated Artery/Lesion type: [place] cross artery [place] vs. transplanted heart: holy cross heart Associated angina: without angina Qualified Code(s): I25.10 - Atherosclerotic heart disease of holy cross coronary artery without angina pectoris
[2024-11-20] MEDS: PRAVASTATIN SOD 40 MG TAB PO SCH (20:27)
[2024-11-21 06:14] LABS: Hematocrit (blood only) 47.9 % (42.0-52.0); Hemoglobin 17.0 g/dl (14.0-18.0); Mean Corpuscular Hemoglobin 32.1 pg (25.0-34.0); Mean Corpuscular Volume 90.4 fL (80.0-100.0); Platelet Count 171 K/uL (130-400); RDW Standard Deviation 45.3 fL (36.4-46.3); Red Blood Count 5.30 M/uL (4.70-6.10); White Blood Count 8.62 K/ul (4.8-10.8)
[2024-11-21 06:39] LABS: Anion Gap 7.0 (3-11); Blood Urea Nitrogen 22.0 mg/dl (6-23); Calcium 9.6 mg/dl (8.6-10.3); Carbon Dioxide 26.0 mmol/L (21-32); Chloride 105.0 mmol/L (98-107); Creatinine Clr Calc Pharmacy 57.7 ml/min; Glucose 115.0 mg/dl (70-99(Fasting)); Potassium 4.6 mmol/L (3.5-5.1); Sodium 138.0 mmol/L (136-145)
[2024-11-21 06:55] LABS: Thyroid Stimulating Hormone 1.698 uIu/ml (0.300-4.500)
[2024-11-21 07:12] VITALS: RESP 18; TEMP 97.5
--- NOTE | 2024-11-21 10:54 | Cardiology Progress Note ---
Date of Service November 21, 2024 Assessment & Plan (1) ICD (implantable cardioverter-defibrillator) in place: (2) Ischemic cardiomyopathy: (3) CAD (coronary artery disease): (4) NSVT (nonsustained ventricular tachycardia): (5) Atrial fibrillation, permanent: (6) Anticoagulant long-term use: (7) Chronic kidney disease, stage II (mild): Plan 1. Single-chamber ICD: His ICD was interrogated and reprogrammed today. I did reprogram his ICD to backup ventricular pacing, with holding his AV simon blocking medications his heart rate has increased appropriately. 2. Ischemic cardiomyopathy: He has an ischemic cardiomyopathy but his left ventricular function had gradually improved and he is on guideline directed medical therapy (carvedilol 25 mg twice daily, Jardiance, Entresto 97/103 twice daily and spironolactone 12.5 mg daily). We could potentially go up on his carv edilol to help control heart rate, but then he may end up pacing which would not be ideal and I do not know that this would help him very much as far as his symptoms go. Based on his recent echo his left ventricular function has remained quite stable and may not explain his symptoms. 3. Coronary disease: Although he has coronary artery disease he does not have any anginal symptoms but should remain on aspirin. I do not get a sense that his fatigue is due to coronary artery disease as it seems to be continuous not related to exertion, however I do want to have him walk on a treadmill to see whether he has exercise intolerance and if he has an appropriate heart rate response and whether reproduces his symptoms. We know he has coronary disease so that may be a little hard to interpret but is potentially helpful. 4. Nonsustained ventricular tachycardia: He has had no recent ventricular tachycardia, the episodes detected by the device appeared to be rapidly conducted atrial fibrillation. 5. Atrial fibrillation: He remains in atrial fibrillation which appears to be permanent, he should remain on anticoagulation. His heart rate had been a little fast and he is on carvedilol 25 mg twice a day as well as digoxin and diltiazem for rate control. More recently his heart rate has been on the slow side which could partially explain his symptoms although it is not clear. I have now discontinued diltiazem and digoxin. 6. Anticoagulation: He is on Eliquis 5 mg twice a day, this is an appropriate dose for his age, weight and kidney function and I recommended he continue it. 7. Kidney disease: His creatinine had bumped slightly in the fall 2023, this had were happened as we adjusting his heart failure medications. I did decrease his spironolactone to 12.5 mg from 25 and that seemed to have helped. 8. Exertional difficulty: He is having difficulty with exertion and his pacemaker monitoring indicates a fluctuating activity without any particular trend over the last year. He exercised quite well today and I do not think he has a cardiovascular limitation in his exercise ability. His heart rate increased nicely on the stress test, however with discontinuation of his diltiazem and digoxin yesterday his heart rate may increase over the next few days and we will need to watch for that. I am not sure this explains his symptoms but we can leave him off of these 2 medications for the time being I am considering adding 1 or both as an outpatient. I do not have any further testing that I would suggest at this time. Admission and Anticipated Discharge Date Admission Date: November 20, 2024 Subjective He is still not feeling well, he feels his symptoms have not really changed since pacemaker reprogramming yesterday. He still feels short of breath at night and is not clear whether he feels short of breath with activity. He does not have palpitations. Physical Exam Physical Exam: Constitutional: Alert, cooperative and in no distress. HEENT: Unremarkable Neck: No jugular venous distention, carotid pulses are normal and equal bilaterally without bruits. Pulmonary: Clear to auscultation bilaterally. Cardiac: Regular rhythm with no murmur, gallop or rub. Abdomen: Soft, nontender with normal bowel sounds. Extremities: No edema. Neurologic: No focal findings. Skin: The device site is well-healed without erythema, swelling or tenderness. No rash, ecchymoses or petechiae. Results & Data Vital Signs (Past 12 Hours) Vital Signs Temp Pulse Pulse Resp BP Pulse Ox O2 Del Method 11/21/24 07:50 Room Air 11/21/24 07:12 36.4 C L 85 18 111/71 96 Room Air 11/21/24 05:50 78 11/21/24 04:02 36.7 C 77 16 112/73 98 Room Air 11/20/24 22:57 36.9 C 77 18 100/61 96 Room Air Laboratory Results CBC 11/21/24 Range/Units 05:32 WBC 8.62 (4.8-10.8) K/ul RBC 5.30 (4.70-6.10) M/uL Hgb 17.0 (14.0-18.0) g/dl Hct 47.9 (42.0-52.0) % Plt Count 171 (130-400) K/uL Comprehensive Metabolic Panel 11/21/24 Range/Units 05:32 Sodium 138 (136-145) mmol/L Potassium 4.6 (3.5-5.1) mmol/L Chloride 105 (98-107) mmol/L Carbon Dioxide 26 (21-32) mmol/L BUN 22 (6-23) mg/dl Creatinine 1.26 D (0.6-1.4) mg/dl Glucose 115 H (70-99(Fasting)) mg/dl Calcium 9.6 (8.6-10.3) mg/dl Intake and Output 11/20/24 11/21/24 11/21/24 22:59 06:59 14:59 Intake Total 400 / 1355.333 250 / 1355.333 Balance 400 / 1355.333 250 / 1355.333 Intake: Oral 400 / 650 250 / 650 Other: # Unmeasured Voids 1 1 Weight 94.8 kg Weight Measurement Method Built in [facility] Diagnostic Findings Telemetry: Predominantly ventricular paced appropriately overnight, appropriate increase in heart rate with activities. This morning he is overriding his pacemaker most of the time with a well-controlled heart rate and atrial fibrillation. Stress test: I supervised his treadmill stress test today, he exercised quite well into stage III of the Ernie protocol and did not have significant shortness of breath. His heart rate increased appropriately on his current medications. On my review of the images his heart function improved appropriately, a formal reading is pending. PG Care Time/CCT Total # of Minutes Spent Total Time Spent with Patient: Total time spent is greater than 50% in coordination of care (as documented) at patient's floor/unit and/or counseling patient: Coding Level of Care Code 17503 SUB INP/OBS CARE 3/50MIN Diagnoses ICD (implantable cardioverter-defibrillator) in place Z95.810 Ischemic cardiomyopathy I25.5 Coronary artery disease involving samish coronary artery of samish heart without angina pectoris I25.10 Associated angina: without angina Coronary Disease-Associated Artery/Lesion type: [place] artery [place] vs. transplanted heart: sam[place] heart NSVT (nonsustained ventricular tachycardia) I47.2 Atrial fibrillation, permanent I48.21 Anticoagulant long-term use Z79.01 Chronic kidney disease, stage II (mild) N18.2 CPT Codes Implantable Defib Single Lead Programming - 40071 ([id number]) (3) CAD (coronary artery disease) Associated angina: without angina Coronary Disease-Associated Artery/Lesion type: samish artery [place] vs. transplanted heart: samish heart Qualified Code(s): I25.10 - Atherosclerotic heart disease of samish coronary artery without angina pectoris
[2024-11-21 11:35] VITALS: PULSE 78; O2SAT 97
--- NOTE | 2024-11-21 11:45 | Discharge Summary ---
Discharge Summary Date of Service November 21, 2024 Principal Dx & Hospital Course #1 = Principal Diagnosis (1) Acute kidney injury: (2) Fatigue: (3) Type 2 diabetes mellitus: Plan 79-year-old male PMHx CAD s/p CABG (2008) and pacemaker (2012), HFrEF, HLP, CKD, abnormal chest imaging (2018), T2DM, OA, tinnitus, and ongoing fatigue who presents for shortness of breath and ongoing fatigue worsening day of arrival. ED evaluation reveals CBC without leukocytosis, stable H&H; PT/INR WNL; VBG's WNL; CMP creatinine 2.0, BUN 34, glucose 130; troponin 12.7; BNP 53; digoxin level 2.2; CXR pending official read, likely have consolidation or pulmonary edema; EKG A-fib with SVR and ventricular paced complexes at 58 bpm.; Provided with 500 mL NSS in ED #FILIPPO With history of CKD. Creatinine of 2 on admission w/ improvement to 1.26 UA negative bladder scan prn Hold Furosemide + aldactone - digoxin is continued for now but if creatinine worsens, discuss w/ cardiology s/p IVF #Fatigue ongoing x 1 year w/ associated weight loss, unclear etiology but may be secondary to cardiac disease vs noncompliance w/ BiPAP in setting of EMILIO, rule out underlying thyroid d/o CBC/BMP stable. TSH WNL Echo 09/2024: EF 35-40%, global hypokinesis of LV, LV moderately dilated, LA severely dilated, mild AR, mild MR hx Lyme + in 04/2024, follow up tick panel negative Vitamin D low - started on supplementation B12 WNL Pulm referral on dc--> do suspect this is related to EMILIO given negative workup otherwise. #T2DM H/o DMT2; At home regimen Jardiance. Most recent A1C 10/2024 @ 6.5% Continued home medications #CAD s/p pacemaker/HFrEF/Cardiomyopathy/HLP BNP 53 EKG Afib with SVR on admission; abnormal findings of bradycardia w/ pauses on tele cardiology consulted --> pacemaker adjusted 11/20. Stress test 11/21 normal. dc'ed diltiazem + digoxin - will need close follow up in outpatient office. Continue pravastatin, Jardiance & Entresto #Afib- EKG at admission Afib with SVR; Dig level 2.2 at admission; Eliquis #EMILIO BiPAP at home, does not use Possible fatigue may be contributing to not using CPAP overnight ? Updated at bedside 11/21, patient discharged home Admission HPI Per Admitting Provider 79-year-old male PMHx CAD s/p CABG (2008) and pacemaker (2012), HFrEF, HLP, CKD, abnormal chest imaging (2018), T2DM, OA, tinnitus, and ongoing fatigue who presents for shortness of breath and ongoing fatigue worsening day of arrival. Patient states that he "just cannot breathe, cannot take a full deep breath" and that this has been occurring for "a while" but worsened the night of arrival. He also states that he started to have bilateral arm pain, more noticeable in the R than L and ongoing. He states that it has been as a slow, consistent discomfort that goes down to his wrist, rating it 5 out of 10 on the pain scale. He denies any chest pain, but states that he may have had some chest pressure at one point. He states he had a history of heart attacks in the past, 13 years ago, and did not have any chest pain with this. He does admit to having dizziness when he goes from a sitting to standing position, but that he does not have any dizziness whenever he is standing after a few moments. Describes it as feeling off balance. No falls, no syncope. When asked if he is weak, he states "absolutely." States that he has been for approximately 1 year, which started in August 2023. He states that is not related to activity, but he used to be able to run multiple miles a day and walk a few thousand steps but has been unable to now. He has lost approximately 30 pounds over the past year. Also admits to some nausea for the past year, states that he did experience this the day of arrival. Does have some numbness and tingling in his bilateral feet, does also have a history of T2DM. Denies palpitations, cough, fever/chills, URI symptoms, abdominal pain, V/D/C, LUTS, lightheadedness, syncope, or falls. Has not been around any sick contacts. Does not recall any tick bites. States that he did take his evening medications. Has furosemide as needed which she has not taken for approximately 1 year his states. Does not use his BiPAP at night. ED evaluation reveals CBC without leukocytosis, stable H&H; PT/INR WNL; VBG's WNL; CMP creatinine 2.0, BUN 34, glucose 130; troponin 12.7; BNP 53; digoxin level 2.2; CXR pending official read, likely have consolidation or pulmonary edema; EKG A-fib with SVR and ventricular paced complexes at 58 bpm.; Provided with 500 mL NSS in ED. Please see Dr. Larson's attestation for adjustments/additions to treatment plan. Discharge Exam Constitutional WD/WN, vitals as above Eyes PERRL, conjunctivae normal, anicteric sclerae Respiratory normal respiratory effort Skin no rashes, warm and dry Neurologic PERRL, EOMI, accommodation nl, no face palsy, no dysarthria Psychiatric A+Ox3, euthymic affect Discharge Plan Discharge Items Patient Disposition: Home - Self-Care Reason For Visit: FILIPPO Discharge Diagnosis: Fatigue, FILIPPO Condition on Discharge: Fair Activity: Resume your previous activity Non-emergency contact: Primary Care Provider, Real Estate Director and Shower Attendant Call non-emergency contact if: you have any medication questions and your symptoms worsen Follow-up/Referrals: Denver Amaro MD [Physician] - (Cardiology office will call to schedule follow up appointment.) Nolan Mcmillan MD [Primary Care Provider] - 11/27/24 11:20 am Angel Santana MD [Physician] - (Pulmonary office will call to schedule follow up.) Diet: Carb Consistent or DM2 and Heart Healthy Addtl Attending Provider Instructions: Mr. Muñiz, You were recently hospitalized for ongoing fatigue and shortness of breath. You were evaluated by cardiology & had a stress test done that looked okay. At this time, your current symptoms may be related to your sleep apnea & being able to not tolerate a BiPAP at bedtime. Untreated sleep apnea can cause excessive daytime fatigue. Please resume your outpatient medications on discharge. Follow up with cardiology on discharge. A referral back to pulmonology has been made & their office will contact you for an appointment. Please follow up with your PCP within 1-2 weeks of discharge. Best of luck! Giselle Sandoval PA-C Pending Studies at Discharge: No Stand-Alone Forms: My Drive, Smoking Cessation Medications and DC Order Prescriptions: Continued diltiazem HCl 180 mg capsule,extended release 24hr 180 mg PO QAM Qty: 90 3RF pravastatin 40 mg tablet 40 mg PO HS Qty: 90 3RF carvedilol 25 mg tablet 25 mg PO BID Qty: 180 3RF apixaban 5 mg tablet 5 mg PO BID Qty: 180 3RF Entresto 97-103 mg tablet 1 tab PO BID Qty: 180 3RF spironolactone 25 mg tablet 12.5 mg PO DAILY Qty: 45 3RF empagliflozin 25 mg tablet 25 mg PO QAM Qty: 90 3RF furosemide 20 mg tablet 20 mg PO Q OTHER DAY PRN (Reason: weight gain, SOB, edema.) Qty: 45 3RF digoxin 250 mcg (0.25 mg) tablet 250 mcg PO DAILY Qty: 90 3RF aspirin 81 mg Tablet,Delayed Release (Dr/Ec) 81 mg PO QAM cyanocobalamin (vitamin B-12) 1,000 mcg Tablet, Sublingual 1,000 mcg SUBLINGUAL UD Rx Instructions: twice weekly cholecalciferol (vitamin D3) [Vitamin D3] 25 mcg (1,000 unit) Capsule 25 mcg PO DAILY No Action (DME) BiPap Machine Misc See Rx Instructions .Route Qty: 1 0RF Rx Instructions: BiPAP ST 17/9 cm H2O with a backup rate of 10 (DME) BiPap Supplies Misc See Rx Instructions .Route Qty: 1 0RF Rx Instructions: As directed Discharge Orders: Discharge Order (Routine); Ordered 11/21/24 Ordered By: Giselle Sandoval Admission Data Admit Date/Time: 11/20/24 00:21 Attending Provider: Liu Haro Admit Provider: Maria Esther Larson Primary Care Provider: Nolan Mcmillan V. Other Providers: Maria Esther Larson; Kavin Garza; Ace Driscoll; Roel Leung; Denver Amaro; Chris Tinsley Jr; Viarj Alexandre; Hina Ray; Yue Meng; Andrea Shoemaker; Andrea Rojas; Carmen Bran; Janusz Holly; Kimberly Townsend; Janusz Stewart; Kang Aguila; Wai Stockton; Emigdio Lewis; Tate Matos; Ross Murray; Aurea Tobin Other Interventions: *Nursing Shift Assessment Last Done: 11/21/24 07:50 Discharge Summary Assessment (RN) Last Done: 11/21/24 13:52 Hospital Stay Data Consultations 11/19/24 23:44 ED Decision to Admit Stat 11/20/24 08:01 Consult Cardiology Routine Pending Results Patient Have Any Pending Studies at Discharge: No Discharge Instructions Given to Patient (Per Discharging Provider) Mr. Muñiz, You were recently hospitalized for ongoing fatigue and shortness of breath. You were evaluated by cardiology & had a stress test done that looked okay. At this time, your current symptoms may be related to your sleep apnea & being able to not tolerate a BiPAP at bedtime. Untreated sleep apnea can cause excessive daytime fatigue. Please resume your outpatient medications on discharge. Follow up with cardiology on discharge. A referral back to pulmonology has been made & their office will contact you for an appointment. Please follow up with your PCP within 1-2 weeks of discharge. Best of luck! Giselle Sandoval PA-C Supervising Physician Co-Signing Physician Notes The patient was not seen by me. The chart was reviewed. Case discussed with SIMON Cummins. Agree with assessment and plan Total Time Total Time Spent Total Time Spent (In Minutes): 55 Total Time Includes: Examination of the Patient, Discharge Planning, Medication Reconciliation, Communication With Other Providers and Other Coding Level of Care Code 38310 INP/OBS DISCH >30 MIN Diagnoses Acute kidney injury N17.9 Fatigue R53.83 Type 2 diabetes mellitus E11.9
[2024-11-21 12:10] VITALS: BP 91/61
--- NOTE | 2024-11-22 18:37 | XCELERA ---
[id number]
--- NOTE | 2024-11-24 09:56 | Electrocardiogram Report ---
Test Reason : Blood Pressure : */* mmHG Vent. Rate : 58 BPM Atrial Rate : * BPM P-R Int : * ms QRS Dur : 116 ms QT Int : 378 ms P-R-T Axes : * 58 -21 degrees QTcB Int : 371 ms Atrial fibrillation with slow ventricular response with occasional ventricular-paced complexes Septal infarct , age undetermined Abnormal ECG When compared with ECG of 26-Mar-2023 20:17, Electronic ventricular pacemaker has replaced Atrial fibrillation Vent. rate has decreased by 35 bpm Confirmed by Denver Amaro ([id number]) on 11/24/2024 9:56:28 AM Referred By: REFERRED SELF Confirmed By: Denver Amaro
== END 2024-11-21 14:20 | disposition home or self-care (01) | DRG 683 ==
LOC: ED 21:58 → SUATTDRO 11-20 00:21 → 2S 11-20 00:21